=== PATIENT | male | born 1940 | race Caucasian/White ===

== ENCOUNTER → 2018-09-23 06:46 | Outpatient (CLI) | payer MEDICARE, OTHER, SELFPAY ==
--- NOTE | 2018-09-23 07:00 | RAD_ITS ---
STUDY: X-RAY - ORBITS REASON FOR EXAM: Male, 77 years old. This study is being performed as a clearance examination for exclusion of orbital metal, prior to the performance of an MRI examination. TECHNIQUE: 2 view(s) of the orbits were obtained. COMPARISON: Prior comparison studies are not available for review at this time. FINDINGS: Normal bilateral orbits without a metallic orbital foreign body. Normal visualized facial bones. Normal paranasal sinuses. The soft tissue structures are unremarkable. RAD/Orbits for Foreign Body IMPRESSION: No demonstrated metallic orbital foreign body. Electronically Signed: Yeny Vyas MD at 7:34 EST , Service support ,
--- NOTE | 2018-09-23 07:01 | MRI_ITS ---
STUDY: MRI BRAIN WITH AND WITHOUT CONTRAST (ATTENTION INTERNAL AUDITORY CANALS - I.A.C.'s) REASON FOR EXAM: Male, 77 years old. rt hearing loss TECHNIQUE: Standardized multiplanar fat and water weighted pulse sequences were obtained. 9 ml of Gadavist contrast material was administered intravenously for the contrast portion of the examination. COMPARISON: None. FINDINGS: Normal bilateral temporal bones. Normal bilateral internal auditory canals. There is no demonstrated intracanalicular or cisternal vestibular schwannoma (acoustic neuroma). There is no enhancement of the bilateral VIIth or VIIIth cranial nerves. Normal bilateral cochlea, vestibules and semicircular canals. Normal size of the ventricles and extra-axial spaces for the patient's age. There are a limited number of small white matter hyperintensities, distributed throughout the deep white matter tracts of the cerebral hemispheres, consistent with mild chronic white matter ischemic changes. There is no evidence for recent intracranial ischemia or other cause of cytotoxic edema on diffusion weighted imaging (DWI). Normal bilateral basal ganglia. Normal thalami. Normal flow voids within the major intracranial circulation suggesting patency by spin echo criteria. Normal venous enhancement. There is no enhancing intra-axial or extra-axial abnormality. There is no extra-axial fluid accumulation. Normal sella turcica, pituitary gland, infundibular stalk, optic chiasm and hypothalamus. Normal tectal plate and pineal gland. Normal midbrain, jenny and medulla. Normal cerebellum. Normal basal cisterns. No demonstrated orbital abnormality, within the constraints of a routine brain study. Normal visualized paranasal sinuses. Normal calvarium and skull base. Normal visualized soft tissue structures. Normal visualized upper cervical spine. MRI/Brain W/WO Contrast IMPRESSION: Normal unenhanced and enhanced MRI of the bilateral internal auditory canals (I.A.C's). Mild chronic involutional changes of the brain. Electronically Signed: Jill Castanon MD at 15:55 EST , Service support ,
[2018-09-23 11:46] LABS: CREATININE FINGERSTICK 0.9 mg/dL (0.70-1.30); EGFR FINGERSTICK > 60.0000 mL/min (>60)
--- OUTSIDE RECORDS SUMMARY | 2018-12-25 11:24 | XMS RPT_ITS ---
:1940 Author Organization OHIP Support Name Relationship Address Phone COLBYASHLEE Unavailable [address] + [place] [address] QUENTIN BOWMAN Unavailable Unavailable Unavailable ZACH FLANAGAN Unavailable Unavailable + NOT GIVEN Unavailable Unavailable Unavailable [place], [address] COLBYLAURAON Unavailable [address] + [place] [address] ASHLEE BOWMAN Unavailable [address] [place] [address] NOT GIVEN Unavailable Unavailable Unavailable [place], [address] COLBY ASHLEE Unavailable [address] + [place] [address] ASHLEE BOWMAN Unavailable [address] Un[facility] [place] [address] R Unavailable Unavailable Unavailable COLBY ASHLEE,L Unavailable [address] + [place] [address] ZACH FLANAGAN Unavailable Unavailable + [place] [address] NOT GIVEN Unavailable Unavailable Unavailable [place], [address] COLBY ASHLEE Unavailable [address] + [place] [address] ASHLEE BOWMAN Unavailable [address] Unavailable [facility] [place] [address] NOT GIVEN Unavailable Unavailable Unavailable [place], [address] ASHLEE BOWMAN Unavailable [address] + [facility] [place] [address] ASHLEE BOWMAN Unavailable [address] Unavailable [facility] [place] [address] ASHLEE BOWMAN Unavailable [address] + [place] [address] QUENTIN BOWMAN Unavailable Unavailable Unavailable FLANAGANPOP HewittE Unavailable Unavailable + NOT GIVEN Unavailable Unavailable Unavailable [place], [address] ASHLEE BOWMAN Unavailable [address] + [place] [address] ASHLEE BOWMAN Unavailable [address] [place] [address] NOT GIVEN Unavailable Unavailable Unavailable [place], [address] ASHLEE BOWMAN Unavailable [address] + [place] [address] ASHLEE BOWMAN Unavailable [address] [place] [address] NOT GIVEN Unavailable Unavailable Unavailable [place], [address] ASHLEE BOWMAN Unavailable [address] + [place] [address] ASHLEE BOWMAN Unavailable [address] [place] [address] NOT GIVEN Unavailable Unavailable Unavailable [place], [address] ASHLEE BOWMAN Unavailable [address] + [place] [address] ASHLEE BOWMAN Unavailable [address] [place] [address] NOT GIVEN Unavailable Unavailable Unavailable [place], [address] ASHLEE BOWMAN Unavailable [address] + [place] [address] ASHLEE BOWMAN Unavailable [address] [place] [address] NOT GIVEN Unavailable Unavailable Unavailable [place], [address] ASHLEE BOWMAN Unavailable [address] + [place] [address] ASHLEE BOWMAN Unavailable [address] [place] [address] ASHLEE BOWMAN Unavailable [address] + [place] [address] COLBYQUENTIN Unavailable Unavailable Unavailable FLANAGANPOP HewittE Unavailable Unavailable + COLBYASHLEE Unavailable [address] + [place] [address] COLBYQUENTIN Unavailable Unavailable Unavailable FLANAGANPOP HewittE Unavailable Unavailable + NOT GIVEN Unavailable Unavailable Unavailable [place], [address] COLBYASHLEE Unavailable [address] + [place] [address] ASHLEE BOWMAN Unavailable [address] Unavailable [place] [address] NOT GIVEN Unavailable Unavailable Unavailable [place], [address] ASHLEE BOWMAN Unavailable [address] + [place] [address] ASHLEE BOWMAN Unavailable [address] [place] [address] ASHLEE BOWMAN Unavailable [address] + [place] [address] QUENTIN BOWMAN Unavailable Unavailable Unavailable FLANAGANPOPE Unavailable Unavailable + ASHLEE BOWMAN Unavailable [address] + [place] [address] QUENTIN BOWMAN Unavailable Unavailable Unavailable FLANAGANPOPE Unavailable Unavailable + ASHLEE BOWMAN Unavailable [address] + [place] [address] QUENTIN BOWMAN Unavailable Unavailable Unavailable FLANAGANPOPE Unavailable Unavailable + NOT GIVEN Unavailable Unavailable Unavailable ASHLEE BOWMAN Unavailable [address] + [place] [address] ASHLEE BOWMAN Unavailable [address] Unavailable [place] [address] NOT GIVEN Unavailable Unavailable Unavailable ASHLEE BOWMAN Unavailable [address] + [place] [address] ASHLEE BOWMAN Unavailable [address] Unavailable [place] [address] ASHELE BOWMAN Unavailable [address] + [place] [address] QUENTIN BOWMAN Unavailable Unavailable Unavailable POP FLANAGANE Unavailable Unavailable + Care Team Providers Name Role Phone Jaspal Piedra Attending Unavailable Jaspal Piedra Referring Unavailable JOSE HUTSON Primary Care Unavailable LUX MEEKS MD Admitting Unavailable LUX MEEKS MD Attending Unavailable LUX MEEKS MD Primary Care Unavailable JOSE HUTSON MD Consulting Unavailable PROVIDER, UNKNOWN Consulting Unavailable PROVIDER, UNKNOWN Consulting Unavailable PROVIDER, UNKNOWN Consulting Unavailable SIVA MORSE Admitting Unavailable SIVA MORSE Attending Unavailable SIVA MORSE Primary Care Unavailable JOSE HUTSON MD Admitting Unavailable JOSE HUTSON MD Attending Unavailable JOSE HUTSON MD Primary Care Unavailable JOSE HUTSON MD Consulting Unavailable PROVIDER, UNKNOWN Consulting Unavailable PROVIDER, UNKNOWN Consulting Unavailable PROVIDER, UNKNOWN Consulting Unavailable JOSE HUTSON MD Admitting Unavailable JOSE HUTSON MD Attending Unavailable JOSE HUTSON MD Primary Care Unavailable JOSE HUTSON MD Consulting Unavailable PROVIDER, UNKNOWN Consulting Unavailable PROVIDER, UNKNOWN Consulting Unavailable PROVIDER, UNKNOWN Consulting Unavailable LUX MEEKS MD Admitting Unavailable LUX MEEKS MD Attending Unavailable LUX MEEKS MD Primary Care Unavailable JOSE HUTSON MD Consulting Unavailable PROVIDER, UNKNOWN Consulting Unavailable PROVIDER, UNKNOWN Consulting Unavailable PROVIDER, UNKNOWN Consulting Unavailable MANNIE FARRELL DR Admitting Unavailable MANNIE FARRELL DR Attending Unavailable MANNIE FARRELL DR Primary Care Unavailable JOSE HUTSON MD Consulting Unavailable PROVIDER, UNKNOWN Consulting Unavailable PROVIDER, UNKNOWN Consulting Unavailable PROVIDER, UNKNOWN Consulting Unavailable MANNIE FARRELL DR Admitting Unavailable MANNIE FARRELL DR Attending Unavailable MANNIE FARRELL DR Primary Care Unavailable JOSE HUTSON MD Consulting Unavailable PROVIDER, UNKNOWN Consulting Unavailable PROVIDER, UNKNOWN Consulting Unavailable PROVIDER, UNKNOWN Consulting Unavailable PHOEBE WOODS STAFF MECHANICAL ENGINEER Admitting Unavailable PHOEBE WOODS STAFF MECHANICAL ENGINEER Attending Unavailable PHOEBE WOODS STAFF MECHANICAL ENGINEER Primary Care Unavailable JOSE HUTSON MD Consulting Unavailable PROVIDER, UNKNOWN Consulting Unavailable PROVIDER, UNKNOWN Consulting Unavailable PROVIDER, UNKNOWN Consulting Unavailable WIETECA SIVA G Admitting Unavailable WIROB, SIVA G Attending Unavailable MINI, SIVA G Primary Care Unavailable JOSE HUTSON MD Consulting Unavailable PROVIDER, UNKNOWN Consulting Unavailable PROVIDER, UNKNOWN Consulting Unavailable PROVIDER, UNKNOWN Consulting Unavailable JOSE HUTSON MD Admitting Unavailable JOSE HUTSON MD Attending Unavailable JOSE HUTSON MD Primary Care Unavailable JOSE HUTSON MD Consulting Unavailable PROVIDER, UNKNOWN Consulting Unavailable PROVIDER, UNKNOWN Consulting Unavailable PROVIDER, UNKNOWN Consulting Unavailable LUX MEEKS MD Admitting Unavailable LUX MEEKS MD Attending Unavailable LUX MEEKS MD Primary Care Unavailable JOSE HUTSON MD Consulting Unavailable PROVIDER, UNKNOWN Consulting Unavailable PROVIDER, UNKNOWN Consulting Unavailable PROVIDER, UNKNOWN Consulting Unavailable [facility] Admitting Unavailable [facility] Attending [facility] Unavailable JOSE HUTSON MD Consulting Unavailable PROVIDER, UNKNOWN Consulting Unavailable PROVIDER, UNKNOWN Consulting Unavailable PROVIDER, UNKNOWN Consulting Unavailable LUX MEEKS MD Admitting Unavailable LUX MEEKS MD Attending Unavailable LUX MEEKS MD Primary Care Unavailable LATOUF, JOSE GARCIA Consulting Unavailable PROVIDER, UNKNOWN Consulting Unavailable PROVIDER, UNKNOWN Consulting Unavailable PROVIDER, UNKNOWN Consulting Unavailable PHOEBE WOODS CNP Admitting Unavailable PHOEBE WOODS STAFF MECHANICAL ENGINEER Attending Unavailable SLAVENMarcelina, PHOEBE STAFF MECHANICAL ENGINEER Primary Care Unavailable LATOUF, JOSE GARCIA Consulting Unavailable PROVIDER, UNKNOWN Consulting Unavailable PROVIDER, UNKNOWN Consulting Unavailable PROVIDER, UNKNOWN Consulting Unavailable WELLINGTON, KEVIN K Attending Unavailable LATOUF, BUTROS Referring Unavailable LATOUF, BUTROS Primary Care Unavailable WELLINGTON, KEVIN K Attending Unavailable WELLINGTON, KEVIN K Referring Unavailable LATOUF, BUTROS Primary Care Unavailable WELLINGTON, KEVIN K Attending Unavailable LATOUF, BUTROS Referring Unavailable LATOUF, BUTROS Primary Care Unavailable WELLINGTON, KEVIN K Attending Unavailable LATOUF, BUTROS Referring Unavailable LATOUF, BUTROS Primary Care Unavailable WELLINGTON, KEVIN K Attending Unavailable LATOUF, BUTROS Referring Unavailable LATOUF, BUTROS Primary Care Unavailable WELLINGTON, KEVIN K Attending Unavailable LATOUF, BUTROS Referring Unavailable LATOUF, BUTROS Primary Care Unavailable WELLINGTON, KEVIN K Attending Unavailable LATOUF, BUTROS Referring Unavailable LATOUF, BUTROS Primary Care Unavailable WELLINGTON, KEVIN K Attending Unavailable LATOUF, BUTROS Referring Unavailable LATOUF, BUTROS Primary Care Unavailable PROBLEMS PROBLEMS DATE TYPE CONDITION / ATTENDING STATUS SOURCE CODE 07/02/2018 Admitting Follow-up / WELLINGTON KEVIN [facility] diagnosis 145() [facility] Repository 04/02/2018 Admitting Malignant WELLINGTONKEVIN LACEY [facility] 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 / [facility] C61(ICD-10) Center Repository 11/08/2017 Admitting Malignant WELLINGTONKEVIN [facility] 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 (HCC) [facility] / C61(ICD-10) Center Repository PROCEDURES PROCEDURES No Procedure Records FoundRESULTS RESULTS CMP WITH EGFR Collected: 10/17/2018 Status: F Source: ENMANUEL BENITAANGELA 8:35 PM [facility] REPOSITORY TYPE CODE TESTS RESULT OUT OF RANGE REFERENCE UNITS LAB CMP with eGFR(LOINC) CMP with eGFR Result Comment: COMPREHENSIVE METABOLIC PANEL LAB SODIUM(LOINC) 136 - 145 mmol/l SODIUM 139 LAB POTASSIUM(LOINC) 3.5 - 5.1 mmol/L POTASSIUM 3.5 LAB CHLORIDE(LOINC) 98 - 107 mmol/L CHLORIDE 104 LAB CO2(LOINC) 21.0 - mmol/L 31.0 CO2 25.9 LAB GLUCOSE(LOINC) 74 - 106 mg/dl GLUCOSE High 125 LAB BUN(LOINC) 6 - 20 mg/dl BUN 19 LAB CREATININE(LOINC) 0.7 - 1.3 mg/dl CREATININE 0.9 LAB AST/SGOT(LOINC) 13 - 39 U/L AST/SGOT 19 LAB ALK PHOS(LOINC) 38 - 126 U/L ALK PHOS 57 LAB CALCIUM(LOINC) 8.6 - mg/dl 10.2 CALCIUM 9.2 LAB TOTAL 6.4 - 8.3 g/dl PROTEIN(LOINC) TOTAL PROTEIN 7.3 LAB ALBUMIN(LOINC) 3.4 - 4.8 g/dL ALBUMIN 4.4 LAB GLOBULIN(LOINC) 1.5 - 3.8 G/DL GLOBULIN 2.9 LAB A/G RATIO(LOINC) 0.9 - 1.6 A/G RATIO 1.5 LAB TOTAL BILI(LOINC) 0.0 - 1.5 mg/dl TOTAL BILI 0.4 LAB B/C RATIO(LOINC) 0 - 30 ratio B/C RATIO 21 LAB ALT/SGPT(LOINC) 10 - 40 U/L ALT/SGPT 20 LAB ANION GAP(LOINC) 10 - 20 mmol/L ANION GAP 13 LAB AGE(LOINC) years AGE 77 LAB eGFR(LOINC) 60 - 999 ML/MINUTE eGFR 82 LAB eGFR(AA)(LOINC) 60 - 999 ML/MINUTE eGFR(AA) 99 Result Comment: ACCORDING TO THE NATIONAL KIDNEY DISEASE EDUCATION PROGRAM(NKDE), A NORMAL eGFR IS A VALUE GREATER THAN OR EQUAL TO 60 ML/MIN/1.73 SQ METERS. CHRONIC KIDNEY DISEASE: <60mL/MIN/1.73 SQ METERS KIDNEY FAILURE: <15mL/MIN/1.73 SQ METERS THIS TEST SHOULD ONLY BE USED FOR PATIENTS 18 YEARS OF AGE AND OLDER. Performed By: #### [id number] #### [facility],[address] [place] [address] CBC Collected: 10/17/2018 Status: F Source: [place] [address]:[id number] PM [facility] REPOSITORY TYPE CODE TESTS RESULT OUT OF RANGE REFERENCE UNITS LAB CBC(LOINC) CBC Result Comment: CBC-COMPLETE BLOOD COUNT LAB WBC(LOINC) 4.5 - 10.8 x 10EE3/UL WBC 7.9 LAB RBC(LOINC) 4.50 - x 10EE6/UL 6.00 RBC Low 4.39 LAB HEMOGLOBIN(LOINC) 13.0 - g/dl 17.5 HEMOGLOBIN 14.6 LAB HEMATOCRIT(LOINC) 40.0 - % 52.0 HEMATOCRIT 41.9 LAB MCV(LOINC) 81 - 98 fl MCV 95 LAB MCH(LOINC) 27 - 33 pg MCH 33 LAB MCHC(LOINC) 32 - 36 X10 3 MCHC 35 LAB RDW/CV(LOINC) 12.0 - % 15.6 RDW/CV 13.8 LAB PLATELET(LOINC) 150 - 450 x10EE3/UL PLATELET 251 LAB MPV(LOINC) 6.4 - 10.5 fl MPV 8.7 Result Comment: AUTOMATED DIFFERENTIAL LAB NEUT %(LOINC) 46.0 - 76.0 % NEUT % 60.8 LAB LYMPH %(LOINC) 20.0 - 45.0 % LYMPH % 31.6 LAB MONOS %(LOINC) 0.0 - 10.0 % MONOS % 5.1 LAB EO %(LOINC) 0.0 - 7.0 % EO % 1.9 LAB BASO %(LOINC) 0.0 - 2.0 % BASO % 0.6 LAB Lymph #(LOINC) 0.80 - 2.80 x10EE3/U L Lymph # 2.50 LAB Neut #(LOINC) 1.50 - 7.10 x10EE3/U L Neut # 4.80 LAB [place] #(LOINC) 0.20 - 1.00 x10EE3/U L [place] # 0.40 LAB EO #(LOINC) 0.00 - 0.50 x10EE3/U L EO # 0.10 LAB Baso #(LOINC) 0.00 - 0.10 x10EE3/U L Baso # 0.00 LAB MANUAL DIFF(LOINC) MANUAL DIFF N/A LAB MORPHOLOGY(LOINC ) MORPHOLOGY N/A Result Comment: {CD] Performed By: #### [id number] #### [facility],[address] [place] [address] CMP WITH EGFR Collected: 10/17/2018 Status: F [facility] REPOSITORY TYPE CODE TESTS RESULT OUT OF RANGE REFERENCE UNITS LAB CMP with eGFR(LOINC) CMP with eGFR Result Comment: COMPREHENSIVE METABOLIC PANEL LAB SODIUM(LOINC) 136 - 145 mmol/l SODIUM 139 LAB POTASSIUM(LOINC) 3.5 - 5.1 mmol/L POTASSIUM 3.5 LAB CHLORIDE(LOINC) 98 - 107 mmol/L CHLORIDE 104 LAB CO2(LOINC) 21.0 - mmol/L 31.0 CO2 25.9 LAB GLUCOSE(LOINC) 74 - 106 mg/dl GLUCOSE High 125 LAB BUN(LOINC) 6 - 20 mg/dl BUN 19 LAB CREATININE(LOINC) 0.7 - 1.3 mg/dl CREATININE 0.9 LAB AST/SGOT(LOINC) 13 - 39 U/L AST/SGOT 19 LAB ALK PHOS(LOINC) 38 - 126 U/L ALK PHOS 57 LAB CALCIUM(LOINC) 8.6 - mg/dl 10.2 CALCIUM 9.2 LAB TOTAL 6.4 - 8.3 g/dl PROTEIN(LOINC) TOTAL PROTEIN 7.3 LAB ALBUMIN(LOINC) 3.4 - 4.8 g/dL ALBUMIN 4.4 LAB GLOBULIN(LOINC) 1.5 - 3.8 G/DL GLOBULIN 2.9 LAB A/G RATIO(LOINC) 0.9 - 1.6 A/G RATIO 1.5 LAB TOTAL BILI(LOINC) 0.0 - 1.5 mg/dl TOTAL BILI 0.4 LAB B/C RATIO(LOINC) 0 - 30 ratio B/C RATIO 21 LAB ALT/SGPT(LOINC) 10 - 40 U/L ALT/SGPT 20 LAB ANION GAP(LOINC) 10 - 20 mmol/L ANION GAP 13 LAB AGE(LOINC) years AGE 77 LAB eGFR(LOINC) 60 - 999 ML/MINUTE eGFR >60 LAB eGFR(AA)(LOINC) 60 - 999 ML/MINUTE eGFR(AA) >60 Result Comment: ACCORDING TO THE NATIONAL KIDNEY DISEASE EDUCATION PROGRAM(NKDE), A NORMAL eGFR IS A VALUE GREATER THAN OR EQUAL TO 60 ML/MIN/1.73 SQ METERS. CHRONIC KIDNEY DISEASE: <60mL/MIN/1.73 SQ METERS KIDNEY FAILURE: <15mL/MIN/1.73 SQ METERS THIS TEST SHOULD ONLY BE USED FOR PATIENTS 18 YEARS OF AGE AND OLDER. Performed By: #### [id number] #### [facility],[address] [place] [id number] PSA TOTAL (CANCER/ELEVATED) Collected: Status: F Source: ENMANUEL 10/17/2018 5:55 PM [facility] REPOSITORY TYPE CODE TESTS RESULT OUT OF RANGE REFERENCE UNITS LAB PSA(LOINC) 0.00 - 4.00 ng/ml PSA 0.03 Performed By: #### [id number] #### [facility],[address] [place] [address] TESTOSTERONE [CCL] Collected: 10/17/2018 Status: F [facility] REPOSITORY TYPE CODE TESTS RESULT OUT OF REFERENCE UNITS RANGE LAB TESTOSTERONE [CCL](LOINC) TESTOSTERONE [CCL] Result Comment: _TESTOSTERONE [CCL]_ TESTOSTERONE [CCL] Reported: 10/19/2018 12:20 Status=F TEST RESULT FLAG RANGE UNITS Testosterone 12 L 193-824 ng/dL 10/19/[id number] A testosterone level in the 193-320 ng/dL range with associated clinical symptoms is considered low and may indicate hypogonadism (from [facility] 2010 [id number]:[id number]). Results >320 ng/dL are considered normal. [facility] [employer] [address] [place] [address] Italia Finn M.D. [id number] Performed By: #### [id number] #### [facility],[address] [place] [address] TESTOSTERONE Collected: 10/17/2018 Status: F Source: [place] 5:55 PM [facility] REPOSITORY TYPE CODE TESTS RESULT OUT OF REFERENCE UNITS RANGE LAB TESTO(LOIN 193-824 ng/dL C) Low Testosterone 12 Performed By: #### TESTO #### [facility] Laboratories Routine Lab [address] [place] [address] CREATININE FINGERSTICK Collected: 09/23/2018 Status: F Source: [place] 7:27 AM [facility] REPOSITORY TYPE CODE TESTS RESULT OUT OF RANGE REFERENCE UNITS LAB L9100.0210 0.70-1.30 mg/dL Normal CREATININE WB 0.9 LAB L9100.0220 >60 mL/min EGFR WB Normal > 60.0000 Performed By: #### L9100.0200 #### [facility] Laboratory Point of Care [address] [place] [address] BRAIN W/WO CONTRAST Observed: 09/23/2018 Status: F Source: [place] 7:02 AM [facility] REPOSITORY [facility] Imaging Services [address] [place] [address] Brain W/WO Contrast MR#: [id number] Acct: [id number] Name: QUENTIN BOWMAN Rep #: [id number] : 1940 M 77 From: Jill Castanon MD PCP: Jose Hutson Status: REG CLI Study: Brain W/WO Contrast Date of Exam: 09/23/18 Exam# [id number] Ordering Dr: Jaspal Piedar MD STUDY: MRI BRAIN WITH AND WITHOUT CONTRAST (ATTENTION INTERNAL AUDITORY CANALS - I.A.C.'s) REASON FOR EXAM: Male, 77 years old. rt hearing loss TECHNIQUE: Standardized multiplanar fat and water weighted pulse sequences were obtained. 9 ml of Gadavist contrast material was administered intravenously for the contrast portion of the examination. COMPARISON: None. FINDINGS: Normal bilateral temporal bones. Normal bilateral internal auditory canals. There is no demonstrated intracanalicular or cisternal vestibular schwannoma (acoustic neuroma). There is no enhancement of the bilateral VIIth or VIIIth cranial nerves. Normal bilateral cochlea, vestibules and semicircular canals. Normal size of the ventricles and extra-axial spaces for the patient's age. There are a limited number of small white matter hyperintensities, distributed throughout the deep white matter tracts of the cerebral hemispheres, consistent with mild chronic white matter ischemic changes. There is no evidence for recent intracranial ischemia or other cause of cytotoxic edema on diffusion weighted imaging (DWI). Normal bilateral basal ganglia. Normal thalami. Normal flow voids within the major intracranial circulation suggesting patency by spin echo criteria. Normal venous enhancement. There is no enhancing intra-axial or extra-axial abnormality. There is no extra-axial fluid accumulation. Normal sella turcica, pituitary gland, infundibular stalk, optic chiasm and hypothalamus. Normal tectal plate and pineal gland. Normal midbrain, jenny and medulla. Normal cerebellum. Normal basal cisterns. No demonstrated orbital abnormality, within the constraints of a routine brain study. Normal visualized paranasal sinuses. Normal calvarium and skull base. Normal visualized soft tissue structures. Normal visualized upper cervical spine. MRI/Brain W/WO Contrast IMPRESSION: Normal unenhanced and enhanced MRI of the bilateral internal auditory canals (I.A.C's). Mild chronic involutional changes of the brain. Electronically Signed: Jill Castanon MD at 15:55 EST , Service support , CC: Jose Hutson; Hemal Piedra MD Tube Former Operator: Signed ORBITS FOR FOREIGN Observed: 09/22/2018 Status: F Source: [place] 1:38 PM [facility] REPOSITORY [facility] Imaging Services [address] [place] [address] Orbits for Foreign Body MR#: [id number] Acct: [id number] Name: QUENTIN BOWMAN Rep #: [id number] : 1940 M 77 From: Yeny Farrell MD PCP: Jose Hutson Status: REG CLI Study: Orbits for Foreign Body Date of Exam: 09/23/18 Exam# [id number] Ordering Dr: Jaspal Piedra MD STUDY: X-RAY - ORBITS REASON FOR EXAM: Male, 77 years old. This study is being performed as a clearance examination for exclusion of orbital metal, prior to the performance of an MRI examination. TECHNIQUE: 2 view(s) of the orbits were obtained. COMPARISON: Prior comparison studies are not available for review at this time. FINDINGS: Normal bilateral orbits without a metallic orbital foreign body. Normal visualized facial bones. Normal paranasal sinuses. The soft tissue structures are unremarkable. RAD/Orbits for Foreign Body IMPRESSION: No demonstrated metallic orbital foreign body. Electronically Signed: Yeny Farrell MD at 7:34 EST , Service support , CC: Jose Hutson; Hemal Piedra MD Tube Former Operator: Signed CBC Collected: 07/21/2018 Status: F Source: ENMANUEL [place] 11:30 AM [facility] REPOSITORY TYPE CODE TESTS RESULT OUT OF RANGE REFERENCE UNITS LAB CBC(LOINC) CBC Result Comment: CBC-COMPLETE BLOOD COUNT LAB WBC(LOINC) 4.5 - 10.8 x 10EE3/UL WBC 7.8 LAB RBC(LOINC) 4.50 - x 10EE6/UL 6.00 RBC Low 4.43 LAB HEMOGLOBIN(LOINC) 13.0 - g/dl 17.5 HEMOGLOBIN 14.5 LAB HEMATOCRIT(LOINC) 40.0 - % 52.0 HEMATOCRIT 41.8 LAB MCV(LOINC) 81 - 98 fl MCV 94 LAB MCH(LOINC) 27 - 33 pg MCH 33 LAB MCHC(LOINC) 32 - 36 X10 3 MCHC 35 LAB RDW/CV(LOINC) 12.0 - % 15.6 RDW/CV 14.5 LAB PLATELET(LOINC) 150 - 450 x10EE3/UL PLATELET 237 LAB MPV(LOINC) 6.4 - 10.5 fl MPV 8.8 Result Comment: AUTOMATED DIFFERENTIAL LAB NEUT %(LOINC) 46.0 - 76.0 % NEUT % 59.6 LAB LYMPH %(LOINC) 20.0 - 45.0 % LYMPH % 30.7 LAB MONOS %(LOINC) 0.0 - 10.0 % MONOS % 7.2 LAB EO %(LOINC) 0.0 - 7.0 % EO % 1.8 LAB BASO %(LOINC) 0.0 - 2.0 % BASO % 0.7 LAB Lymph #(LOINC) 0.80 - 2.80 x10EE3/U L Lymph # 2.40 LAB Neut #(LOINC) 1.50 - 7.10 x10EE3/U L Neut # 4.60 LAB [place] #(LOINC) 0.20 - 1.00 x10EE3/U L [place] # 0.60 LAB EO #(LOINC) 0.00 - 0.50 x10EE3/U L EO # 0.10 LAB Baso #(LOINC) 0.00 - 0.10 x10EE3/U L Baso # 0.10 LAB MANUAL DIFF(LOINC) MANUAL DIFF N/A LAB MORPHOLOGY(LOINC ) MORPHOLOGY N/A Result Comment: {CD] Performed By: #### [id number] #### [facility],[address] [place] [address] CMP WITH EGFR Collected: 07/21/2018 Status: F Source: [facility] 11:30 AM [facility] REPOSITORY TYPE CODE TESTS RESULT OUT OF RANGE REFERENCE UNITS LAB CMP with eGFR(LOINC) CMP with eGFR Result Comment: COMPREHENSIVE METABOLIC PANEL LAB SODIUM(LOINC) 136 - 145 mmol/l SODIUM 138 LAB POTASSIUM(LOINC) 3.5 - 5.1 mmol/L POTASSIUM 4.0 LAB CHLORIDE(LOINC) 98 - 107 mmol/L CHLORIDE 107 LAB CO2(LOINC) 21.0 - mmol/L 31.0 CO2 23.8 LAB GLUCOSE(LOINC) 74 - 106 mg/dl GLUCOSE 79 LAB BUN(LOINC) 6 - 20 mg/dl BUN 17 LAB CREATININE(LOINC) 0.7 - 1.3 mg/dl CREATININE 0.8 LAB AST/SGOT(LOINC) 13 - 39 U/L AST/SGOT 21 LAB ALK PHOS(LOINC) 38 - 126 U/L ALK PHOS 45 LAB CALCIUM(LOINC) 8.6 - mg/dl 10.2 CALCIUM 9.5 LAB TOTAL PROTEIN(LOINC) 6.4 - 8.3 g/dl TOTAL PROTEIN 7.1 LAB ALBUMIN(LOINC) 3.4 - 4.8 g/dL ALBUMIN 4.4 LAB GLOBULIN(LOINC) 1.5 - 3.8 G/DL GLOBULIN 2.7 LAB A/G RATIO(LOINC) 0.9 - 1.6 A/G RATIO 1.6 LAB TOTAL BILI(LOINC) 0.0 - 1.5 mg/dl TOTAL BILI 0.6 LAB B/C RATIO(LOINC) 0 - 30 ratio B/C RATIO 21 LAB ALT/SGPT(LOINC) 10 - 40 U/L ALT/SGPT 19 LAB ANION GAP(LOINC) 10 - 20 mmol/L ANION GAP 11 LAB AGE(LOINC) years AGE 77 LAB eGFR(LOINC) 60 - 999 ML/MINUTE eGFR >60 LAB eGFR(AA)(LOINC) 60 - 999 ML/MINUTE eGFR(AA) >60 Result Comment: ACCORDING TO THE NATIONAL KIDNEY DISEASE EDUCATION PROGRAM(NKDE), A NORMAL eGFR IS A VALUE GREATER THAN OR EQUAL TO 60 ML/MIN/1.73 SQ METERS. CHRONIC KIDNEY DISEASE: <60mL/MIN/1.73 SQ METERS KIDNEY FAILURE: <15mL/MIN/1.73 SQ METERS THIS TEST SHOULD ONLY BE USED FOR PATIENTS 18 YEARS OF AGE AND OLDER. Performed By: #### [id number] #### [facility],[address] [place], [place] [address] CBC Collected: 06/18/2018 Status: F Source: [facility] [facility] AM [facility] REPOSITORY TYPE CODE TESTS RESULT OUT OF RANGE REFERENCE UNITS LAB CBC(LOINC) CBC Result Comment: CBC-COMPLETE BLOOD COUNT LAB WBC(LOINC) 4.5 - 10.8 x 10EE3/UL WBC 7.0 LAB RBC(LOINC) 4.50 - x 10EE6/UL 6.00 RBC Low 4.46 LAB HEMOGLOBIN(LOINC) 13.0 - g/dl 17.5 HEMOGLOBIN 14.3 LAB HEMATOCRIT(LOINC) 40.0 - % 52.0 HEMATOCRIT 42.3 LAB MCV(LOINC) 81 - 98 fl MCV 95 LAB MCH(LOINC) 27 - 33 pg MCH 32 LAB MCHC(LOINC) 32 - 36 X10 3 MCHC 34 LAB RDW/CV(LOINC) 12.0 - % 15.6 RDW/CV 13.9 LAB PLATELET(LOINC) 150 - 450 x10EE3/UL PLATELET 212 LAB MPV(LOINC) 6.4 - 10.5 fl MPV 8.4 Result Comment: AUTOMATED DIFFERENTIAL LAB NEUT %(LOINC) 46.0 - 76.0 % NEUT % 56.5 LAB LYMPH %(LOINC) 20.0 - 45.0 % LYMPH % 31.5 LAB MONOS %(LOINC) 0.0 - 10.0 % MONOS % 8.6 LAB EO %(LOINC) 0.0 - 7.0 % EO % 2.9 LAB BASO %(LOINC) 0.0 - 2.0 % BASO % 0.5 LAB Lymph #(LOINC) 0.80 - 2.80 x10EE3/U L Lymph # 2.20 LAB Neut #(LOINC) 1.50 - 7.10 x10EE3/U L Neut # 4.00 LAB [place] #(LOINC) 0.20 - 1.00 x10EE3/U L [place] # 0.60 LAB EO #(LOINC) 0.00 - 0.50 x10EE3/U L EO # 0.20 LAB Baso #(LOINC) 0.00 - 0.10 x10EE3/U L Baso # 0.00 LAB MANUAL DIFF(LOINC) MANUAL DIFF N/A LAB MORPHOLOGY(LOINC ) MORPHOLOGY N/A Result Comment: {CD] Performed By: #### [id number] #### [facility],[address] [place] [address] PSA CANCER SCREENING Collected: 06/18/2018 Status: F Source: [facility] ([id number]) 7:28 AM [facility] REPOSITORY TYPE CODE TESTS RESULT OUT OF RANGE REFERENCE UNITS LAB PSA(LOINC) 0.00 - 4.00 ng/ml PSA <0.01 Performed By: #### [id number] #### [facility],[address] [place] [address] CMP WITH EGFR Collected: 06/18/2018 Status: F Source: [facility] 7:28 AM [facility] REPOSITORY TYPE CODE TESTS RESULT OUT OF RANGE REFERENCE UNITS LAB CMP with eGFR(LOINC) CMP with eGFR Result Comment: COMPREHENSIVE METABOLIC PANEL LAB SODIUM(LOINC) 136 - 145 mmol/l SODIUM 141 LAB POTASSIUM(LOINC) 3.5 - 5.1 mmol/L POTASSIUM 4.0 LAB CHLORIDE(LOINC) 98 - 107 mmol/L CHLORIDE High 108 LAB CO2(LOINC) 21.0 - mmol/L 31.0 CO2 26.1 LAB GLUCOSE(LOINC) 74 - 106 mg/dl GLUCOSE 87 LAB BUN(LOINC) 6 - 20 mg/dl BUN 14 LAB CREATININE(LOINC) 0.7 - 1.3 mg/dl CREATININE 0.9 LAB AST/SGOT(LOINC) 13 - 39 U/L AST/SGOT 17 LAB ALK PHOS(LOINC) 38 - 126 U/L ALK PHOS 46 LAB CALCIUM(LOINC) 8.6 - mg/dl 10.2 CALCIUM 9.3 LAB TOTAL 6.4 - 8.3 g/dl PROTEIN(LOINC) TOTAL PROTEIN 7.0 LAB ALBUMIN(LOINC) 3.4 - 4.8 g/dL ALBUMIN 4.2 LAB GLOBULIN(LOINC) 1.5 - 3.8 G/DL GLOBULIN 2.8 LAB A/G RATIO(LOINC) 0.9 - 1.6 A/G RATIO 1.5 LAB TOTAL BILI(LOINC) 0.0 - 1.5 mg/dl TOTAL BILI 0.5 LAB B/C RATIO(LOINC) 0 - 30 ratio B/C RATIO 16 LAB ALT/SGPT(LOINC) 10 - 40 U/L ALT/SGPT 15 LAB ANION GAP(LOINC) 10 - 20 mmol/L ANION GAP 11 LAB AGE(LOINC) years AGE 77 LAB eGFR(LOINC) 60 - 999 ML/MINUTE eGFR >60 LAB eGFR(AA)(LOINC) 60 - 999 ML/MINUTE eGFR(AA) >60 Result Comment: ACCORDING TO THE NATIONAL KIDNEY DISEASE EDUCATION PROGRAM(NKDE), A NORMAL eGFR IS A VALUE GREATER THAN OR EQUAL TO 60 ML/MIN/1.73 SQ METERS. CHRONIC KIDNEY DISEASE: <60mL/MIN/1.73 SQ METERS KIDNEY FAILURE: <15mL/MIN/1.73 SQ METERS THIS TEST SHOULD ONLY BE USED FOR PATIENTS 18 YEARS OF AGE AND OLDER. Performed By: #### [id number] #### [place] [address] LIPID PROFILE Collected: 06/18/2018 Status: F Source: [facility] 7:28 [facility] REPOSITORY TYPE CODE TESTS RESULT OUT OF REFERENCE UNITS RANGE LAB LIPID PROFILE(LOIN C) LIPID PROFILE Result Comment: LIPID PROFILE LAB TRIGLYCERIDE(LOINC) 0 - 150 mg/dl TRIGLYCERIDE 97 LAB CHOLESTEROL(LOINC) 0 - 200 mg/dl CHOLESTEROL 150 LAB HDL(LOINC) 40 - 60 mg/dl HDL 51 LAB CHOL/HDL(LOINC) 0.0 - 5.0 CHOL/HDL 2.9 LAB LDL(LOINC) 0 - 129 mg/dl LDL 80 Performed By: #### [id number] #### [place] [address] TSH Collected: 06/18/2018 Status: F Source: [facility] 7:28 [facility] REPOSITORY TYPE CODE TESTS RESULT OUT OF RANGE REFERENCE UNITS LAB TSH(LOINC) 0.34 - 5.60 uIU/ml TSH 2.29 Performed By: #### [id number] #### [place] [address] TESTOSTERONE, TOTAL Collected: 06/18/2018 Status: F Source: [facility] 7:[address] [place] [address] REPOSITORY TYPE CODE TESTS RESULT OUT OF RANGE REFERENCE UNITS LAB TESTOSTERON E, TOTAL(LOINC ) TESTOSTERONE , TOTAL Result Comment: _TESTOSTERONE, TOTAL_ TESTOSTERONE, TOTAL, MALES (ADULT), IMMUNOASSAY Reported: 06/20/2018 12:29 Status=F TEST RESULT FLAG RANGE UNITS TESTOSTERONE, TOTAL, 14 L 250-827 ng/dL 06/[id number] .[id number] MALES (ADULT), IMMUNOASSAY In hypogonadal males, Testosterone, Total, LC/MS/MS, is the recommended assay due to the diminished accuracy of immunoassay at levels below 250 ng/dL. This test code LAB must be ith no collected Unknown in(LOINC) must be a collected in red-top tu Result Comment: gel. Test Performed by [email or web address], [facility], [address] [place] [address] Gabriel Del Rosario M.D., Ph.D., Director of Laboratories , [facility] [id number] Performed By: #### [id number] #### [facility],[address] [place] [address] OPERATIVE PROCEDURES Observed: 05/12/2018 Status: F Source: [facility] 2:58 PM [facility] OPERATIVE REPORT NAME ACCOUNT SEX AGE ADMIT DISCHARGE PT MED. RECORD# NUMBER DATE DATE TYPE QUENTIN BOWMAN [id number] M 77 05/07/18 05/07/18 [id number] ROOM: [facility] DATE OF : 1940 DICTATING PHYSICIAN: Mannie Farrell DATE OF SURGERY: 05/07/18 SURGEON: Mannie Farrell M.D. GREENKEEPER: ANESTHESIOLOGIST: ANESTHETIC: Local with MAC. PREOPERATIVE DIAGNOSIS: Left carpal tunnel syndrome, left trigger thumb. POSTOPERATIVE DIAGNOSIS: Left carpal tunnel syndrome, left trigger thumb. OPERATION PERFORMED: Open release left carpal canal and left trigger thumb. COMPLICATIONS: ESTIMATED BLOOD LOSS: INDICATIONS FOR SURGERY: The patient is a 77-year-old man with history of left hand pain, numbness, tingling, consistent with carpal tunnel syndrome. Also left thumb pain and trigger and consistent with a trigger thumb. He wishes to have surgical intervention. FINDINGS: Intraoperative findings showed stenosis over the carpal canal region and stenosis over the flexor tendon at the thumb at the A1 mi, release of those tissues. DESCRIPTION OF OPERATION: The patient was taken to the operating room, transferred to the operating room table. He was given sedation by the C.R.N.A. Appropriate timeout is performed. His left palm and left thumb were prepped with Betadine and alcohol. He underwent local anesthetic with a total of 10 mL of 2% lidocaine plain, anesthetizing both the carpal canal and base of the left thumb. His left upper extremity had a well padded tourniquet applied to the arm. Left upper extremity is prepped, tied, and draped in the usual orthopedic sterile fashion for the procedure. We exsanguinated the limb, applied a tourniquet 25 mmHg. A 3 mm incision was carried over the palm through skin and subcutaneous tissue, bringing this down onto the Page 1 of 2 QUENTIN BOWMAN Operative Report transverse carpal ligament. Bleeding is controlled with the Bovie. We opened the transverse carpal ligament with a combination of knife and scissors, proximally and distally. Ultimately my small finger could be placed proximally and distally without any undue tension on the contents of the carpal canal. Contents of the carpal canal were visualized. No abnormalities were otherwise, noted. At this point, we thoroughly irrigated, bleeding controlled with the Bovie. We repaired the skin edges with 4-0 Nylon. We then made a transverse incision at the base of the thumb, at the flexor crease through skin only with the knife. Careful dissection with scissors pressed down on the A1 mi over the thumb tendons. That was released with knife and scissors. Once this was done, patient could actively and passively move the thumb without triggering. The area was examined. No other pathology was noted. The wound was thoroughly irrigated. Tourniquet was let down, bleeding controlled with the Bovie. The wound was again thoroughly irrigated. Skin edges were reapproximated with a 4-0 Nylon. Sterile bandage was applied. The patient was awoken from anesthetic, transferred back to his own bed in Recovery, in satisfactory condition. Dictated By: Mannie Farrell MD 05/07/18 08:25 JOB #: [id number] Transcribed By: [email or web address] 05/07/18 10:05 Electronically signed by: E-SIGN DR. MANNIE FARRELL M.D. 05/12/18 14:58 Page 2 of 2 QUENTIN BOWMAN Operative Report CBC Collected: 04/30/2018 Status: F Source: [facility] 9:35 AM [facility] REPOSITORY TYPE CODE TESTS RESULT OUT OF RANGE REFERENCE UNITS LAB CBC(LOINC) CBC Result Comment: CBC-COMPLETE BLOOD COUNT LAB WBC(LOINC) 4.5 - 10.8 x 10EE3/UL WBC 7.5 LAB RBC(LOINC) 4.50 - x 10EE6/UL 6.00 RBC Low 4.37 LAB HEMOGLOBIN(LOINC) 13.0 - g/dl 17.5 HEMOGLOBIN 14.3 LAB HEMATOCRIT(LOINC) 40.0 - % 52.0 HEMATOCRIT 42.4 LAB MCV(LOINC) 81 - 98 fl MCV 97 LAB MCH(LOINC) 27 - 33 pg MCH 33 LAB MCHC(LOINC) 32 - 36 X10 3 MCHC 34 LAB RDW/CV(LOINC) 12.0 - % 15.6 RDW/CV 14.3 LAB PLATELET(LOINC) 150 - 450 x10EE3/UL PLATELET 236 LAB MPV(LOINC) 6.4 - 10.5 fl MPV 8.9 Result Comment: AUTOMATED DIFFERENTIAL LAB NEUT %(LOINC) 46.0 - 76.0 % NEUT % 63.4 LAB LYMPH %(LOINC) 20.0 - 45.0 % LYMPH % 26.9 LAB MONOS %(LOINC) 0.0 - 10.0 % MONOS % 7.6 LAB EO %(LOINC) 0.0 - 7.0 % EO % 1.9 LAB BASO %(LOINC) 0.0 - 2.0 % BASO % 0.2 LAB Lymph #(LOINC) 0.80 - 2.80 x10EE3/U L Lymph # 2.00 LAB Neut #(LOINC) 1.50 - 7.10 x10EE3/U L Neut # 4.80 LAB [place] #(LOINC) 0.20 - 1.00 x10EE3/U L [place] # 0.60 LAB EO #(LOINC) 0.00 - 0.50 x10EE3/U L EO # 0.10 LAB Baso #(LOINC) 0.00 - 0.10 x10EE3/U L Baso # 0.00 LAB MANUAL DIFF(LOINC) MANUAL DIFF N/A LAB MORPHOLOGY(LOINC ) MORPHOLOGY N/A Result Comment: {CD] Performed By: #### [id number] #### [facility],[address] [place] [address] BMP WITH EGFR Collected: 04/30/2018 Status: F Source: [facility] 9:35 AM [facility] REPOSITORY TYPE CODE TESTS RESULT OUT OF RANGE REFERENCE UNITS LAB BMP with eGFR(LOINC) BMP with eGFR Result Comment: BASIC METABOLIC PANEL LAB SODIUM(LOINC) 136 - 145 mmol/l SODIUM 141 LAB POTASSIUM(LOINC) 3.5 - 5.1 mmol/L POTASSIUM 3.9 LAB CHLORIDE(LOINC) 98 - 107 mmol/L CHLORIDE 105 LAB CO2(LOINC) 21.0 - mmol/L 31.0 CO2 26.9 LAB GLUCOSE(LOINC) 74 - 106 mg/dl GLUCOSE 103 LAB BUN(LOINC) 6 - 20 mg/dl BUN 15 LAB CREATININE(LOINC) 0.7 - 1.3 mg/dl CREATININE 0.9 LAB CALCIUM(LOINC) 8.6 - mg/dl 10.2 CALCIUM 9.4 LAB ANION GAP(LOINC) 10 - 20 mmol/L ANION GAP 13 LAB AGE(LOINC) years AGE 77 LAB eGFR(LOINC) 60 - 999 ML/MINUTE eGFR >60 LAB eGFR(AA)(LOINC) 60 - 999 ML/MINUTE eGFR(AA) >60 Result Comment: ACCORDING TO THE NATIONAL KIDNEY DISEASE EDUCATION PROGRAM(NKDE), A NORMAL eGFR IS A VALUE GREATER THAN OR EQUAL TO 60 ML/MIN/1.73 SQ METERS. CHRONIC KIDNEY DISEASE: <60mL/MIN/1.73 SQ METERS KIDNEY FAILURE: <15mL/MIN/1.73 SQ METERS THIS TEST SHOULD ONLY BE USED FOR PATIENTS 18 YEARS OF AGE AND OLDER. Performed By: #### [id number] #### [facility],[address] [place] [address] CMP WITH EGFR Collected: 04/22/2018 Status: F Source: [facility] 6:30 PM [facility] REPOSITORY TYPE CODE TESTS RESULT OUT OF RANGE REFERENCE UNITS LAB CMP with eGFR(LOINC) CMP with eGFR Result Comment: COMPREHENSIVE METABOLIC PANEL LAB SODIUM(LOINC) 136 - 145 mmol/l SODIUM 140 LAB POTASSIUM(LOINC) 3.5 - 5.1 mmol/L POTASSIUM 3.5 LAB CHLORIDE(LOINC) 98 - 107 mmol/L CHLORIDE 107 LAB CO2(LOINC) 21.0 - mmol/L 31.0 CO2 23.6 LAB GLUCOSE(LOINC) 74 - 106 mg/dl GLUCOSE High 138 LAB BUN(LOINC) 6 - 20 mg/dl BUN 17 LAB CREATININE(LOINC) 0.7 - 1.3 mg/dl CREATININE 1.1 LAB AST/SGOT(LOINC) 13 - 39 U/L AST/SGOT 20 LAB ALK PHOS(LOINC) 38 - 126 U/L ALK PHOS 44 LAB CALCIUM(LOINC) 8.6 - mg/dl 10.2 CALCIUM 9.2 LAB TOTAL 6.4 - 8.3 g/dl PROTEIN(LOINC) TOTAL PROTEIN 6.7 LAB ALBUMIN(LOINC) 3.4 - 4.8 g/dL ALBUMIN 4.1 LAB GLOBULIN(LOINC) 1.5 - 3.8 G/DL GLOBULIN 2.6 LAB A/G RATIO(LOINC) 0.9 - 1.6 A/G RATIO 1.6 LAB TOTAL BILI(LOINC) 0.0 - 1.5 mg/dl TOTAL BILI 0.6 LAB B/C RATIO(LOINC) 0 - 30 ratio B/C RATIO 15 LAB ALT/SGPT(LOINC) 10 - 40 U/L ALT/SGPT 16 LAB ANION GAP(LOINC) 10 - 20 mmol/L ANION GAP 13 LAB AGE(LOINC) years AGE 77 LAB eGFR(LOINC) 60 - 999 ML/MINUTE eGFR >60 LAB eGFR(AA)(LOINC) 60 - 999 ML/MINUTE eGFR(AA) >60 Result Comment: ACCORDING TO THE NATIONAL KIDNEY DISEASE EDUCATION PROGRAM(NKDE), A NORMAL eGFR IS A VALUE GREATER THAN OR EQUAL TO 60 ML/MIN/1.73 SQ METERS. CHRONIC KIDNEY DISEASE: <60mL/MIN/1.73 SQ METERS KIDNEY FAILURE: <15mL/MIN/1.73 SQ METERS THIS TEST SHOULD ONLY BE USED FOR PATIENTS 18 YEARS OF AGE AND OLDER. Performed By: #### [id number] #### [facility],[address] [place] [address] CBC Collected: 04/22/2018 Status: F [facility] REPOSITORY TYPE CODE TESTS RESULT OUT OF RANGE REFERENCE UNITS LAB CBC(LOINC) CBC Result Comment: CBC-COMPLETE BLOOD COUNT LAB WBC(LOINC) 4.5 - 10.8 x 10EE3/UL WBC High 11.8 LAB RBC(LOINC) 4.50 - x 10EE6/UL 6.00 RBC Low 4.19 LAB HEMOGLOBIN(LOINC 13.0 - g/dl ) 17.5 HEMOGLOBIN 13.8 LAB HEMATOCRIT(LOINC 40.0 - % ) 52.0 HEMATOCRIT 40.0 LAB MCV(LOINC) 81 - 98 fl MCV 96 LAB MCH(LOINC) 27 - 33 pg MCH 33 LAB MCHC(LOINC) 32 - 36 X10 3 MCHC 35 LAB RDW/CV(LOINC) 12.0 - % 15.6 RDW/CV 14.3 LAB PLATELET(LOINC) 150 - 450 x10EE3/UL PLATELET 239 LAB MPV(LOINC) 6.4 - 10.5 fl MPV 9.0 Result Comment: AUTOMATED DIFFERENTIAL LAB NEUT %(LOINC) 46.0 - 76.0 % NEUT % 69.3 LAB LYMPH %(LOINC) 20.0 - 45.0 % LYMPH % 22.0 LAB MONOS %(LOINC) 0.0 - 10.0 % MONOS % 6.8 LAB EO %(LOINC) 0.0 - 7.0 % EO % 1.6 LAB BASO %(LOINC) 0.0 - 2.0 % BASO % 0.3 LAB Lymph #(LOINC) 0.80 - 2.80 x10EE3/U L Lymph # 2.60 LAB Neut #(LOINC) 1.50 - 7.10 x10EE3/U L Neut # High 8.20 LAB [place] #(LOINC) 0.20 - 1.00 x10EE3/U L [place] # 0.80 LAB EO #(LOINC) 0.00 - 0.50 x10EE3/U L EO # 0.20 LAB Baso #(LOINC) 0.00 - 0.10 x10EE3/U L Baso # 0.00 LAB MANUAL DIFF(LOINC) MANUAL DIFF N/A LAB MORPHOLOGY(LOINC ) MORPHOLOGY N/A Result Comment: {CD] Performed By: #### [id number] #### [facility],[address] [place] [address] CBC WITH DIFF TUSHAR Collected: 04/02/2018 Status: F Source: [facility] 7:52 AM [facility] REPOSITORY TYPE CODE TESTS RESULT OUT OF REFERENCE UNITS RANGE LAB WBC 4.23-9.07 K/uL WBC Count 6.91 LAB RBC 4.63-6.08 M/uL RBC Count 4.27 Low LAB HGB 13.7-17.5 g/dL Hemoglobin 13.5 Low LAB HCT 40.1-51.0 % Hematocrit 41.6 LAB MCV 79.0-92.2 fL Mean Cell 97.4 High Volume LAB MCH 25.7-32.2 pg Mean Cell 31.6 Hgb LAB MCHC 32.3-36.5 g/dL Mean Cell 32.5 Hgb Conc LAB RDW 11.6-14.4 % RBC 14.2 Distribution LAB PLT 163-337 K/uL Platelet 229 Count LAB MPV 9.4-12.4 fL Mean 9.9 Platelet Volume LAB NRBC 0.0-0.2 /100 WBC NUCLEATED 0.0 RBC LAB DTYPE Electronic DIFFERENTIAL TYPE Differential LAB IGRE % IMMATURE 0.4 GRANS % LAB SEGS % NEUTROPHIL 60.1 SEGMENTED LAB LYM % LYMPHOCYTE 26.9 % LAB MON % MONOCYTE % 10.0 LAB EOS % EOSINOPHIL 2.2 % LAB BASO % BASOPHIL % 0.4 LAB IGABS <0.04 K/uL IMMATURE <0.04 GRANS ABSOLUTE LAB SBANS 1.78-5.38 K/uL SEGS + 4.15 Bands,Absolute LAB ALYM 1.32-3.57 K/uL Abs Lymph 1.86 LAB AMONO 0.30-0.82 K/uL Abs [place] 0.69 LAB AEOS <0.55 K/uL Abs Eos 0.15 LAB ABASO <0.09 K/uL Abs Baso <0.04 Performed By: #### [id number] #### [facility]ar [facility], [facility] [address] [place] [address] METABOLIC PANEL - CHRI Collected: 04/02/2018 Status: F Source: [facility] 7:52 AM [facility] REPOSITORY TYPE CODE TESTS RESULT OUT OF REFERENCE UNITS RANGE LAB NA 133-143 mmol/L Sodium 143 LAB K 3.5-5.0 mmol/L Potassium 3.6 LAB CL 98-108 mmol/L Chloride 108 LAB BUN 7-22 mg/dL BUN 15 LAB CREA 0.70-1.30 mg/dL Creatinine 0.97 LAB GLUC 70-99 mg/dL Glucose 80 LAB CA 8.6-10.5 mg/dL Calcium 9.2 LAB ALP 32-126 U/L Alkaline Phosphatase 56 LAB AST 14-40 U/L AST 22 LAB TP 6.4-8.3 g/dL Total Protein 6.8 LAB ALB 3.5-5.0 g/dL Albumin 4.1 LAB BILT <1.5 mg/dL Bilirubin Total 0.5 LAB CO2 22-30 mmol/L Carbon Dioxide 27 LAB GAP 7-17 mmol/L Anion Gap 12 LAB ALT 10-52 U/L ALT 18 LAB GFR >60 mL/min/1.7 3sqM Est GFR,non >60 LAB GFRA >60 mL/min/1.7 3sqM Est GFR, >60 LAB OSMC 278-305 mOsm/kg Osmolality (Calc) 297 Performed By: #### ROMELIADFJ #### Tushar [facility] [address] [place], [place] [address] PSA TUMOR MARKER - Collected: 04/02/2018 Status: F Source: [facility] 7:52 AM [facility] REPOSITORY TYPE CODE TESTS RESULT OUT OF RANGE REFERENCE UNITS LAB EPSA <4.00 ng/mL PSA <0.04 (Prostate Sp Ag) Performed By: #### ROMELIADFJ #### Tushar [facility] [address] [place], [place] [address] CMP WITH EGFR Collected: 01/24/2018 Status: F Source: [facility] 3:27 PM [facility] REPOSITORY TYPE CODE TESTS RESULT OUT OF RANGE REFERENCE UNITS LAB CMP with eGFR(LOINC) CMP with eGFR Result Comment: COMPREHENSIVE METABOLIC PANEL LAB SODIUM(LOINC) 136 - 145 mmol/l SODIUM 141 LAB POTASSIUM(LOINC) 3.5 - 5.1 mmol/L POTASSIUM 4.0 LAB CHLORIDE(LOINC) 98 - 107 mmol/L CHLORIDE 107 LAB CO2(LOINC) 21.0 - mmol/L 31.0 CO2 27.2 LAB GLUCOSE(LOINC) 74 - 106 mg/dl GLUCOSE 77 LAB BUN(LOINC) 6 - 20 mg/dl BUN High 21 LAB CREATININE(LOINC) 0.7 - 1.3 mg/dl CREATININE 0.9 LAB AST/SGOT(LOINC) 13 - 39 U/L AST/SGOT 21 LAB ALK PHOS(LOINC) 38 - 126 U/L ALK PHOS 48 LAB CALCIUM(LOINC) 8.6 - mg/dl 10.2 CALCIUM 9.3 LAB TOTAL 6.4 - 8.3 g/dl PROTEIN(LOINC) TOTAL PROTEIN 7.0 LAB ALBUMIN(LOINC) 3.4 - 4.8 g/dL ALBUMIN 4.2 LAB GLOBULIN(LOINC) 1.5 - 3.8 G/DL GLOBULIN 2.8 LAB A/G RATIO(LOINC) 0.9 - 1.6 A/G RATIO 1.5 LAB TOTAL BILI(LOINC) 0.0 - 1.5 mg/dl TOTAL BILI 0.5 LAB B/C RATIO(LOINC) 0 - 30 ratio B/C RATIO 23 LAB ALT/SGPT(LOINC) 10 - 40 U/L ALT/SGPT 17 LAB ANION GAP(LOINC) 10 - 20 mmol/L ANION GAP 11 LAB AGE(LOINC) years AGE 77 LAB eGFR(LOINC) 60 - 999 ML/MINUTE eGFR >60 LAB eGFR(AA)(LOINC) 60 - 999 ML/MINUTE eGFR(AA) >60 Result Comment: ACCORDING TO THE NATIONAL KIDNEY DISEASE EDUCATION PROGRAM(NKDE), A NORMAL eGFR IS A VALUE GREATER THAN OR EQUAL TO 60 ML/MIN/1.73 SQ METERS. CHRONIC KIDNEY DISEASE: <60mL/MIN/1.73 SQ METERS KIDNEY FAILURE: <15mL/MIN/1.73 SQ METERS THIS TEST SHOULD ONLY BE USED FOR PATIENTS 18 YEARS OF AGE AND OLDER. Performed By: #### [id number] #### [facility],[address] [place], [place] [id number] CBC Collected: 01/24/2018 Status: F Source: [facility] 3:27 PM [facility] REPOSITORY TYPE CODE TESTS RESULT OUT OF RANGE REFERENCE UNITS LAB CBC(LOINC) CBC Result Comment: CBC-COMPLETE BLOOD COUNT LAB WBC(LOINC) 4.5 - 10.8 x 10EE3/UL WBC 9.1 LAB RBC(LOINC) 4.50 - x 10EE6/UL 6.00 RBC 4.53 LAB HEMOGLOBIN(LOINC) 13.0 - g/dl 17.5 HEMOGLOBIN 14.5 LAB HEMATOCRIT(LOINC) 40.0 - % 52.0 HEMATOCRIT 42.6 LAB MCV(LOINC) 81 - 98 fl MCV 94 LAB MCH(LOINC) 27 - 33 pg MCH 32 LAB MCHC(LOINC) 32 - 36 X10 3 MCHC 34 LAB RDW/CV(LOINC) 12.0 - % 15.6 RDW/CV 14.6 LAB PLATELET(LOINC) 150 - 450 x10EE3/UL PLATELET 217 LAB MPV(LOINC) 6.4 - 10.5 fl MPV 9.5 Result Comment: AUTOMATED DIFFERENTIAL LAB NEUT %(LOINC) 46.0 - 76.0 % NEUT % 63.6 LAB LYMPH %(LOINC) 20.0 - 45.0 % LYMPH % 29.8 LAB MONOS %(LOINC) 0.0 - 10.0 % MONOS % 4.6 LAB EO %(LOINC) 0.0 - 7.0 % EO % 1.8 LAB BASO %(LOINC) 0.0 - 2.0 % BASO % 0.2 LAB Lymph #(LOINC) 0.80 - 2.80 x10EE3/U L Lymph # 2.70 LAB Neut #(LOINC) 1.50 - 7.10 x10EE3/U L Neut # 5.80 LAB [place] #(LOINC) 0.20 - 1.00 x10EE3/U L [place] # 0.40 LAB EO #(LOINC) 0.00 - 0.50 x10EE3/U L EO # 0.20 LAB Baso #(LOINC) 0.00 - 0.10 x10EE3/U L Baso # 0.00 LAB MANUAL DIFF(LOINC) MANUAL DIFF N/A LAB MORPHOLOGY(LOINC ) MORPHOLOGY N/A Result Comment: {CD] Performed By: #### [id number] #### [facility],[address] [place], [place] [id number] CBC WITH DIFF TUSHAR Collected: 01/01/2018 Status: F Source: [facility] 8:14 AM [facility] REPOSITORY TYPE CODE TESTS RESULT OUT OF REFERENCE UNITS RANGE LAB WBC 4.23-9.07 K/uL WBC Count 7.43 LAB RBC 4.63-6.08 M/uL RBC Count 4.49 Low LAB HGB 13.7-17.5 g/dL Hemoglobin 14.5 LAB HCT 40.1-51.0 % Hematocrit 43.8 LAB MCV 79.0-92.2 fL Mean Cell 97.6 High Volume LAB MCH 25.7-32.2 pg Mean Cell 32.3 High Hgb LAB MCHC 32.3-36.5 g/dL Mean Cell 33.1 Hgb Conc LAB RDW 11.6-14.4 % RBC 14.8 High Distribution LAB PLT 163-337 K/uL Platelet 204 Count LAB MPV 9.4-12.4 fL Mean 10.2 Platelet Volume LAB NRBC 0.0-0.2 /100 WBC NUCLEATED 0.0 RBC LAB DTYPE Electronic DIFFERENTIAL TYPE Differential LAB IGRE % IMMATURE 0.3 GRANS % LAB SEGS % NEUTROPHIL 60.5 SEGMENTED LAB LYM % LYMPHOCYTE 26.8 % LAB MON % MONOCYTE % 10.0 LAB EOS % EOSINOPHIL 2.0 % LAB BASO % BASOPHIL % 0.4 LAB IGABS 0.00-0.03 K/uL IMMATURE 0.02 GRANS ABSOLUTE LAB SBANS 1.78-5.38 K/uL SEGS + 4.50 Bands,Absolute LAB ALYM 1.32-3.57 K/uL Abs Lymph 1.99 LAB AMONO 0.30-0.82 K/uL Abs [place] 0.74 LAB AEOS 0.04-0.54 K/uL Abs Eos 0.15 LAB ABASO 0.01-0.08 K/uL Abs Baso 0.03 Performed By: #### CBCDFJ #### Tushar CCCT, [facility] [address] [place], [place] [address] #### TESTOS #### [facility] [address] [place] [address] [facility] [address] [place], [place] [address] CMPN WITHOUT GLUCOSE Collected: 01/01/2018 Status: F Source: [facility] 8:14 AM [facility] REPOSITORY TYPE CODE TESTS RESULT OUT OF REFERENCE UNITS RANGE LAB NA 133-143 mmol/L Sodium 141 LAB K 3.5-5.0 mmol/L Potassium 4.1 LAB CL 98-108 mmol/L Chloride 107 LAB BUN 7-22 mg/dL BUN 17 LAB CREA 0.70-1.30 mg/dL Creatinine 0.91 LAB CA 8.6-10.5 mg/dL Calcium 9.4 LAB ALP 32-126 U/L Alkaline Phosphatase 58 LAB AST 14-40 U/L AST 26 LAB TP 6.4-8.3 g/dL Total Protein 6.8 LAB ALB 3.5-5.0 g/dL Albumin 4.1 LAB BILT <1.5 mg/dL Bilirubin Total 0.4 LAB CO2 22-30 mmol/L Carbon Dioxide 30 LAB GAP 7-17 mmol/L Anion Gap 8 LAB ALT 10-52 U/L ALT 18 LAB GFR >60 mL/min/1.7 3sqM Est GFR,non >60 LAB GFRA >60 mL/min/1.7 3sqM Est GFR, >60 Performed By: #### ROMELIADFJ #### Tushar [facility] [address] [place] [address] #### TESTOS #### [facility] [address] [place] [address] [address] [place] [address] PSA TUMOR MARKER - Collected: 01/01/2018 Status: F Source: [facility] 8:14 AM [facility] REPOSITORY TYPE CODE TESTS RESULT OUT OF RANGE REFERENCE UNITS LAB EPSA <4.00 ng/mL PSA 0.30 (Prostate Sp Ag) Performed By: #### ROMELIADFJ #### Tushar [facility] [address] [place] [address] #### TESTOS #### [facility] [address] [place] [address] [address] [place] [id number] TESTOSTERONE, SERUM Collected: 01/01/2018 Status: F Source: [facility] 8:14 AM [facility] REPOSITORY TYPE CODE TESTS RESULT OUT OF REFERENCE UNITS RANGE LAB TESTOS 87-814 ng/dL Low 14 Testosterone , serum Performed By: #### CBCDFJ #### Tushar SEPULVEDAT, [facility] [address] [place], [place] [address] #### TESTOS #### [facility] [address] [place] [address] [facility] [address] [place], [place] [address] CMP WITH EGFR Collected: 11/26/2017 Status: F Source: [facility] 7:30 AM [facility] REPOSITORY TYPE CODE TESTS RESULT OUT OF RANGE REFERENCE UNITS LAB CMP with eGFR(LOINC) CMP with eGFR Result Comment: COMPREHENSIVE METABOLIC PANEL LAB SODIUM(LOINC) 136 - 145 mmol/l SODIUM 140 LAB POTASSIUM(LOINC) 3.5 - 5.1 mmol/L POTASSIUM 4.2 LAB CHLORIDE(LOINC) 98 - 107 mmol/L CHLORIDE 106 LAB CO2(LOINC) 21.0 - mmol/L 31.0 CO2 28.0 LAB GLUCOSE(LOINC) 74 - 106 mg/dl GLUCOSE 77 LAB BUN(LOINC) 6 - 20 mg/dl BUN 14 LAB CREATININE(LOINC) 0.7 - 1.3 mg/dl CREATININE 0.9 LAB AST/SGOT(LOINC) 13 - 39 U/L AST/SGOT 20 LAB ALK PHOS(LOINC) 38 - 126 U/L ALK PHOS 51 LAB CALCIUM(LOINC) 8.6 - mg/dl 10.2 CALCIUM 9.2 LAB TOTAL 6.4 - 8.3 g/dl PROTEIN(LOINC) TOTAL PROTEIN 6.9 LAB ALBUMIN(LOINC) 3.4 - 4.8 g/dL ALBUMIN 4.3 LAB GLOBULIN(LOINC) 1.5 - 3.8 G/DL GLOBULIN 2.6 LAB A/G RATIO(LOINC) 0.9 - 1.6 A/G High RATIO 1.7 LAB TOTAL BILI(LOINC) 0.0 - 1.5 mg/dl TOTAL BILI 0.8 LAB B/C RATIO(LOINC) 0 - 30 ratio B/C RATIO 16 LAB ALT/SGPT(LOINC) 10 - 40 U/L ALT/SGPT 20 LAB ANION GAP(LOINC) 10 - 20 mmol/L ANION GAP 10 LAB AGE(LOINC) years AGE 76 LAB eGFR(LOINC) 60 - 999 ML/MINUTE eGFR >60 LAB eGFR(AA)(LOINC) 60 - 999 ML/MINUTE eGFR(AA) >60 Result Comment: ACCORDING TO THE NATIONAL KIDNEY DISEASE EDUCATION PROGRAM(NKDE), A NORMAL eGFR IS A VALUE GREATER THAN OR EQUAL TO 60 ML/MIN/1.73 SQ METERS. CHRONIC KIDNEY DISEASE: <60mL/MIN/1.73 SQ METERS KIDNEY FAILURE: <15mL/MIN/1.73 SQ METERS THIS TEST SHOULD ONLY BE USED FOR PATIENTS 18 YEARS OF AGE AND OLDER. Performed By: #### [id number] #### [place] [id number] LIPID PROFILE Collected: 11/26/2017 Status: F Source: [facility] 7:30 [facility] RE[facility]ITORY TYPE CODE TESTS RESULT OUT OF REFERENCE UNITS RANGE LAB LIPID PROFILE(LOIN C) LIPID PROFILE Result Comment: LIPID PROFILE LAB TRIGLYCERIDE(LOINC) 0 - 150 mg/dl TRIGLYCERIDE 127 LAB CHOLESTEROL(LOINC) 0 - 200 mg/dl CHOLESTEROL 144 LAB HDL(LOINC) 40 - 60 mg/dl HDL 52 LAB CHOL/HDL(LOINC) 0.0 - 5.0 CHOL/HDL 2.8 LAB LDL(LOINC) 0 - 129 mg/dl LDL 67 Performed By: #### [id number] #### [address] [address] BILIRUBIN DIRECT Collected: 11/26/2017 Status: F Source: [facility] 7:30 [facility] REPOSITORY TYPE CODE TESTS RESULT OUT OF REFERENCE UNITS RANGE LAB DIRECT 0.0 - 0.1 mg/dl BILI(LOINC) High DIRECT 0.2 BILI Performed By: #### [id number] #### [place] [id number] VITAMIN D, 25 Collected: 11/26/2017 Status: F Source: [facility] 7:30 [facility] REPOSITORY TYPE CODE TESTS RESULT OUT OF RANGE REFERENCE UNITS LAB VitD(LOINC) 30.00 - 100 ng/mL VitD 31.81 Result Comment: 25-OHD3 indicates both endogenous production and supplementation. 25-OHD2 is an indicator of exogenous sources, such as diet or supplementation. Therapy is based on measurement of Total 25-OHD, with levels <20 ng/mL indicative of Vitamin D deficiency, while levels between 20 ng/mL and 30 ng/mL suggest insufficiency. Optimal levels are >=30ng/mL. Vitamin D, 25-OH D3 Not Established Vitamin D, 25-OH D2 Not Established Performed By: #### [id number] #### [facility],[address] [place] [address] CBC Collected: 11/13/2017 Status: F Source: [facility] 8:40 AM [facility] REPOSITORY TYPE CODE TESTS RESULT OUT OF RANGE REFERENCE UNITS LAB CBC(LOINC) CBC Result Comment: CBC-COMPLETE BLOOD COUNT LAB WBC(LOINC) 4.5 - 10.8 x 10EE3/UL WBC 7.5 LAB RBC(LOINC) 4.50 - x 10EE6/UL 6.00 RBC 4.71 LAB HEMOGLOBIN(LOINC 13.0 - g/dl ) 17.5 HEMOGLOBIN 14.6 LAB HEMATOCRIT(LOINC 40.0 - % ) 52.0 HEMATOCRIT 44.5 LAB MCV(LOINC) 81 - 98 fl MCV 95 LAB MCH(LOINC) 27 - 33 pg MCH 31 LAB MCHC(LOINC) 32 - 36 X10 3 MCHC 33 LAB RDW/CV(LOINC) 12.0 - % 15.6 RDW/CV High 16.4 LAB PLATELET(LOINC) 150 - 450 x10EE3/UL PLATELET 241 LAB MPV(LOINC) 6.4 - 10.5 fl MPV 8.1 Result Comment: AUTOMATED DIFFERENTIAL LAB NEUT %(LOINC) 46.0 - 76.0 % NEUT % 65.8 LAB LYMPH %(LOINC) 20.0 - 45.0 % LYMPH % 22.8 LAB MONOS %(LOINC) 0.0 - 10.0 % MONOS % 9.4 LAB EO %(LOINC) 0.0 - 7.0 % EO % 1.7 LAB BASO %(LOINC) 0.0 - 2.0 % BASO % 0.3 LAB Lymph #(LOINC) 0.80 - 2.80 x10EE3/U L Lymph # 1.70 LAB Neut #(LOINC) 1.50 - 7.10 x10EE3/U L Neut # 4.90 LAB [place] #(LOINC) 0.20 - 1.00 x10EE3/U L [place] # 0.70 LAB EO #(LOINC) 0.00 - 0.50 x10EE3/U L EO # 0.10 LAB Baso #(LOINC) 0.00 - 0.10 x10EE3/U L Baso # 0.00 LAB MANUAL DIFF(LOINC) MANUAL DIFF N/A LAB MORPHOLOGY(LOINC ) MORPHOLOGY N/A Result Comment: {CD] Performed By: #### [id number] #### [facility],[address] [place] [address] CMP WITH EGFR Collected: 11/13/2017 Status: F Source: [facility] 8:40 AM [facility] REPOSITORY TYPE CODE TESTS RESULT OUT OF RANGE REFERENCE UNITS LAB CMP with eGFR(INC) CMP with eGFR Result Comment: COMPREHENSIVE METABOLIC PANEL LAB SODIUM(LOINC) 136 - 145 mmol/l SODIUM 137 LAB POTASSIUM(LOINC) 3.5 - 5.1 mmol/L POTASSIUM 4.0 LAB CHLORIDE(LOINC) 98 - 107 mmol/L CHLORIDE 104 LAB CO2(LOINC) 21.0 - mmol/L 31.0 CO2 29.0 LAB GLUCOSE(LOINC) 74 - 106 mg/dl GLUCOSE 82 LAB BUN(LOINC) 6 - 20 mg/dl BUN 17 LAB CREATININE(LOINC) 0.7 - 1.3 mg/dl CREATININE 0.9 LAB AST/SGOT(LOINC) 13 - 39 U/L AST/SGOT 17 LAB ALK PHOS(LOINC) 38 - 126 U/L ALK PHOS 48 LAB CALCIUM(LOINC) 8.6 - mg/dl 10.2 CALCIUM 9.1 LAB TOTAL PROTEIN(LOINC) 6.4 - 8.3 g/dl TOTAL PROTEIN 7.0 LAB ALBUMIN(LOINC) 3.4 - 4.8 g/dL ALBUMIN 4.2 LAB GLOBULIN(LOINC) 1.5 - 3.8 G/DL GLOBULIN 2.8 LAB A/G RATIO(LOINC) 0.9 - 1.6 A/G RATIO 1.5 LAB TOTAL BILI(LOINC) 0.0 - 1.5 mg/dl TOTAL BILI 0.6 LAB B/C RATIO(LOINC) 0 - 30 ratio B/C RATIO 19 LAB ALT/SGPT(LOINC) 10 - 40 U/L ALT/SGPT 16 LAB ANION GAP(LOINC) 10 - 20 mmol/L ANION Low GAP 8 LAB AGE(LOINC) years AGE 76 LAB eGFR(LOINC) 60 - 999 ML/MINUTE eGFR >60 LAB eGFR(AA)(LOINC) 60 - 999 ML/MINUTE eGFR(AA) >60 Result Comment: ACCORDING TO THE NATIONAL KIDNEY DISEASE EDUCATION PROGRAM(NKDE), A NORMAL eGFR IS A VALUE GREATER THAN OR EQUAL TO 60 ML/MIN/1.73 SQ METERS. CHRONIC KIDNEY DISEASE: <60mL/MIN/1.73 SQ METERS KIDNEY FAILURE: <15mL/MIN/1.73 SQ METERS THIS TEST SHOULD ONLY BE USED FOR PATIENTS 18 YEARS OF AGE AND OLDER. Performed By: #### [id number] #### [facility],[address] [place] [address] CBC WITH DIFF TUSHAR Collected: 11/08/2017 Status: F Source: [facility] 12:39 PM [facility] REPOSITORY TYPE CODE TESTS RESULT OUT OF REFERENCE UNITS RANGE LAB WBC 4.23-9.07 K/uL WBC Count 7.78 LAB RBC 4.63-6.08 M/uL RBC Count 4.56 Low LAB HGB 13.7-17.5 g/dL Hemoglobin 14.3 LAB HCT 40.1-51.0 % Hematocrit 43.1 LAB MCV 79.0-92.2 fL Mean Cell 94.5 High Volume LAB MCH 25.7-32.2 pg Mean Cell 31.4 Hgb LAB MCHC 32.3-36.5 g/dL Mean Cell 33.2 Hgb Conc LAB RDW 11.6-14.4 % RBC 15.9 High Distribution LAB PLT 163-337 K/uL Platelet 228 Count LAB MPV 9.4-12.4 fL Mean 9.9 Platelet Volume LAB NRBC 0.0-0.2 /100 WBC NUCLEATED 0.0 RBC LAB DTYPE Electronic DIFFERENTIAL TYPE Differential LAB IGRE % IMMATURE 0.4 GRANS % LAB SEGS % NEUTROPHIL 60.8 SEGMENTED LAB LYM % LYMPHOCYTE 28.8 % LAB MON % MONOCYTE % 7.6 LAB EOS % EOSINOPHIL 2.1 % LAB BASO % BASOPHIL % 0.3 LAB IGABS 0.00-0.03 K/uL IMMATURE 0.03 GRANS ABSOLUTE LAB SBANS 1.78-5.38 K/uL SEGS + 4.74 Bands,Absolute LAB ALYM 1.32-3.57 K/uL Abs Lymph 2.24 LAB AMONO 0.30-0.82 K/uL Abs [place] 0.59 LAB AEOS 0.04-0.54 K/uL Abs Eos 0.16 LAB ABASO 0.01-0.08 K/uL Abs Baso 0.02 Performed By: #### CBCDFJ #### Tushar [facility] [address] [place] [address] #### TESTOS #### [facility] [address] [place] [address] [place] [address] CMPN WITHOUT GLUCOSE Collected: 11/08/2017 Status: F Source: [facility] 12:39 PM [facility] REPOSITORY TYPE CODE TESTS RESULT OUT OF REFERENCE UNITS RANGE LAB NA 133-143 mmol/L Sodium 136 LAB K 3.5-5.0 mmol/L Potassium 3.8 LAB CL 98-108 mmol/L Chloride 106 LAB BUN 7-22 mg/dL BUN 14 LAB CREA 0.70-1.30 mg/dL Creatinine 0.78 LAB CA 8.6-10.5 mg/dL Calcium 9.1 LAB ALP 32-126 U/L Alkaline Phosphatase 60 LAB AST 14-40 U/L AST 31 LAB TP 6.4-8.3 g/dL Total Protein 6.9 LAB ALB 3.5-5.0 g/dL Albumin 4.2 LAB BILT <1.5 mg/dL Bilirubin Total 0.7 LAB CO2 22-30 mmol/L Carbon Dioxide 26 LAB GAP 7-17 mmol/L Anion Gap 8 LAB ALT 10-52 U/L ALT 22 LAB GFR >60 mL/min/1.7 3sqM Est GFR,non >60 LAB GFRA >60 mL/min/1.7 3sqM Est GFR, >60 Performed By: #### CBCDFJ #### Tushar [facility], [facility] [address] [place] [address] #### TESTOS #### [facility] [address] [place] [address] [place] [address] PSA TUMOR MARKER - Collected: 11/08/2017 Status: F Source: [facility] 12:39 PM [facility] REPOSITORY TYPE CODE TESTS RESULT OUT OF RANGE REFERENCE UNITS LAB EPSA <4.00 ng/mL High PSA 72.70 (Prostate Sp Ag) Result Comment: DILUTED Performed By: #### CBCDFJ #### Tushar [facility], [facility] [address] [place] [address] #### TESTOS #### U [facility] [address] [place] [id number] [place] [address] [address] [place] [address] TESTOSTERONE, SERUM Collected: 11/08/2017 Status: F Source: [facility] 12:39 PM [facility] REPOSITORY TYPE CODE TESTS RESULT OUT OF REFERENCE UNITS RANGE LAB TESTOS 87-814 ng/dL 214 Testosterone , serum Performed By: #### CBCDFJ #### Tushar [facility], [facility] [address] [place] [address] #### TESTOS #### [facility] [address] [place] [id number] [place] [address] [address] [place] [address] ALLERGIES ALLERGIES DATE TYPE / CODE NAME / CODE REACTION SEVERITY SOURCE Drug PROMETHAZINE/0 VOMITING Moderate Enmanuel Pomerene Allergy/131949631(S 3828546(RXNORM (Severity [facility]) ) Modifier) Hospital (Qualifier Repository Value) Drug NIACIN/2916765 FLUSHING Moderate Enmanuel Pomerene Allergy/475987552(S 9(RXNORM) (Severity [facility]) Modifier) Hospital (Qualifier Repository Value) Environmental ADHESIVE RASH Moderate Enmanuel Pomerene Allergy/381941440(S (Severity [facility]) Modifier) Hospital (Qualifier Repository Value) Drug OXYCONTIN/0000 NAUSEA Moderate Enmanuel Pomerene Allergy/572243497(S 9943(RXNORM) (Severity [facility]) Modifier) Hospital (Qualifier Repository Value) Drug PERCOCET/40184 NAUSEA Moderate Enmanuel Pomerene Allergy/819035567(S 148(RXNORM) (Severity [facility]) Modifier) Hospital (Qualifier Repository Value) ENCOUNTERS ENCOUNTERS ADMIT/DISCHARGE ACCOUNT NUMBER ADMITTING ENCOUNTER LOCATION SOURCE CLASS 10/29/2018 [id number] Ambulatory Building:BS1 [facility] Repository 10/17/2018/10/17/19 [id number] CHUCK, Ambulatory Enmanuel Pomerene 19 [facility] Repository 10/17/2018/10/17/19 [id number] JEANNA, Ambulatory Enmanuel Pomerene 19 [facility] Repository 09/23/2018 [id number] Ambulatory [facility] ding:MRI Repository 08/07/2018/08/07/20 [id number] ENMANUEL, Ambulatory Enmanuel Pomerene 18 [facility] Repository 07/21/2018/07/21/20 [id number] JEANNA, Ambulatory Enmanuel Pomerene 18 [facility] Repository 07/02/2018 [id number] Ambulatory Building:BS1 [facility] Repository 06/27/2018/06/27/20 [id number] KEZIAF, Ambulatory Enmanuel Pomerene 18 [facility] Repository 06/18/2018/06/18/20 [id number] MINI, Ambulatory Enmanuel Pomerene 18 [facility] Repository 06/18/2018/06/18/20 [id number] CHUCK, Ambulatory Enmanuel Pomerene 18 [facility] Repository 05/07/2018/05/07/20 [id number] JAMI, Ambulatory Buildin Enmanuel Pomerene 18 MANNIE BROWN Room: [address] Repository 04/30/2018/04/30/20 [id number] JAMI, Ambulatory Enmanuel Pomerene 18 [facility] Repository 04/22/2018/04/22/20 [id number] JEANNA, Ambulatory Enmanuel Pomerene 18 [facility] Repository 04/02/2018 [id number] Ambulatory Building:BS1 [facility] Repository 04/02/2018 [id number] Ambulatory Building:BS1 [facility] Repository 01/24/2018/01/25/20 [id number] KEZIAF, Ambulatory Enmanuel Pomerene 18 [facility] Repository 01/06/2018/01/07/20 [id number] CHERIEOUF, Ambulatory Enmanuel Pomerene 18 [facility] Repository 01/01/2018 [id number] Ambulatory Building:BS1 [facility] Repository 01/01/2018 [id number] Ambulatory Building:BS1 [facility] Repository 12/06/2017 [id number] Ambulatory Building:BS1 [facility] Repository 11/26/2017/11/26/19 [id number] MINI, Ambulatory Enmanuel Pomerene 18 S[facility] Repository 11/13/2017/11/13/19 [id number] JEANNA, Ambulatory Enmanuel Pomerene 18 [facility] Repository 11/08/2017 [id number] Ambulatory Building:BS1 [facility] Repository PAYERS PAYERS ENCOUNTER GUARANTOR PAYER SUBSCRIBER SOURCE 10/29/2018 QUENTIN RENO: Primary QUENTIN RENO: [facility] Insurance:MEDICARE A [id number] [facility] AND [facility] Number: [address], [id number] [address] [place] [address]Oys: Date:8976-78-82Enkm [place] [address]Mfz: Repository Name:CARE () () 10/29/2018 Secondary QUENTIN RENO: [facility] Insurance:KSKJ [id number] [facility] Number: 0 [facility] [id number] [address] [place] [address] Date:Plan Name:[place] [address]Rme: Repository [address] [place] [address] (HS) [address]WP: 10/17/2018 QUENTIN RENO: Primary Insurance:500 QUENTIN RENO: Enmanuel Pomerene MEDICARE [id number] [facility] OUTPATIENTPolic [address], Number: [id number] [address]Hiu: [id number] [place] [id number] Date:Plan Name: () 10/17/2018 Secondary QUENTINNadira BOWMANB: Enmanuel Murray Insurance:CHRISTOAna [id number] [facility] Number[facility] [address] [facility] [id number], Repository Date:Plan Name:[facility] [id number] 10/17/2018 QUENTIN RENO: Primary Insurance:500 QUENTIN CARDENASB: Enmanuel Pomerene [id number] MEDICARE [id number] [facility] OUTPATIENTPolicy [address], Number: [address] [place] [address], Repository [place] [address]Prr: [id number] [place] [id number] Date:Plan Name: () 10/17/2018 Secondary QUENTIN Dueñas COLBYB: Enmanuel Murray Insurance:CHRISTO [id number] [facility] Number: [address] [facility] [id number], Repository Date:Plan Name:[facility] [id number] 09/23/2018 QUENTIN BOWMAN7360 Primary QUENTIN RENO: Betzy TR Insurance:MEDICARE [id number], PART A BPolicy Number: [facility] [address]Whk: [id number] Repository Date:2018-09-15 () 09/23/2018 Secondary QUENTIN RENO: Betzy Insurance:[facility] [id number] Number: [facility] [id number] Repository Date:3053-08-14KEMBWIV E SUPPLEMENT [address] [place] [address] [id number]: 09/23/2018 Tertiary NOT GIVENUNK Betzy Insurance:SELF PAY [facility] Number: Effective Repository Date:2018-09-15 07/21/2018 QUENTIN RENO: Primary Insurance:500 QUENTIN CARDENASB: Enmanuel Pomerene MEDICARE [id number] [address], Number: 3[facility] [place] [address]Nio: [id number] Date:Plan Name: () 07/21/2018 Secondary QUENTIN RENO: Enmanuel Murray Insurance:[facility] [id number] [facility] Number: 0 [facility] [id number], Repository Date:Plan Name:[facility] [id number] 07/02/2018 QUENTIN RENO: Primary QUENTIN RENO: [facility] Insurance:MEDICARE A [id number] [place] [address] Number: [id number] [address]Yis: Date:2749-93-49Egzt [place] [address]Tqy: Repository Name:[facility] () () 07/02/2018 Secondary QUENTIN RENO: [facility] Insurance:[facility] [id number] [facility] Number: [address] [place] [id number] Date:Plan Name:[facility] [address]Sis: Repository [address] [place] [address] () [address]RB: 06/18/2018 QUENTIN RENO: Primary Insurance:500 QUENTIN RENO: Enmanuel Murray MEDICARE [id number], Number: 3[facility], [place] [address]Bsn: [id number] Date:Plan Name: () 06/18/2018 Secondary QUENTIN CARDENASB: Enmanuel Murray Insurance:[facility] [id number] [facility] Number: [address] Hospital [id number], Repository Date:Plan Name:[facility] [id number] 06/18/2018 QUENTIN CARDENASB: Primary Insurance:500 QUENTIN BOWMANDOB: Enmanuel Wagnererene MEDICARE [id number] [address], Number: [place], [place] [address]Kka: [id number] Date:Plan Name: () 06/18/2018 Secondary QUENTIN BOWMANDOB: Enmanuel Maldonadone Insurance:[facility] [id number] [facility] Number: [address] [facility] [id number], Repository Date:Plan Name:[facility] [id number] 05/07/2018 QUENTIN CARDNEASB: Primary Insurance:500 QUENTIN BOWMANDOB: Enmanuel Wagnererene MEDICARE [id number] [address], Number: 3[place], [place] Repository [place] [address]Ohu: [id number] Date:Plan Name: () 05/07/2018 Secondary QUENTIN BOWMANDOB: Enmanuel Maldonadone Insurance:[facility] [id number] [facility] Number: [address] Hospital [id number], Repository Date: [place] [id number] 04/30/2018 QUENTIN CARDENASB: Primary Insurance:500 QUENTIN R COLBYDOB: Enmanuel Pomerene MEDICARE [id number] [address], Number: 3[place] [address]Zcx: [id number] Date:Plan Name: () 04/30/2018 Secondary QUENTIN BOWMANB: Enmanuel Murray Insurance:[facility] [id number] [facility] Number: 0 [address] [facility] [id number], Repository Date:Plan Name:[facility] [id number] 04/22/2018 QUENTIN RENO: Primary Insurance:500 QUENTIN CARDENASB: Enmanuel Pomerene MEDICARE [id number], Number: [place] [address]Fyw: [id number] Date:Plan Name: () 04/22/2018 Secondary QUENTIN BOWMANB: Enmanuel Murray Insurance:[facility] [id number] [facility] Number: 0 [address] [facility] [id number], Repository Date:Plan Name:[facility] [id number] 04/02/2018 QUENTIN CARDENASB: Primary QUENTIN CARDENASB: [facility] Insurance:MEDICARE A [id number] [facility] BPolicy Number: [address], [id number] [address]Wne: Date:1313-93-18Owlg [place] [address]Kfg: Repository Name:CARE () () 04/02/2018 Secondary QUENTIN BOWMANB: [facility] Insurance:[facility] [id number] [facility] Number: 0 [facility] [id number] Date:Plan Name:[facility] [address]Sau: Repository [address] [place] [address] ) [address]WP: 04/02/2018 QUENTIN RENO: Primary QUENTIN CARDENASB: [facility] Insurance:MEDICARE A [id number] [facility] AND BPolicy Number: [address], [id number] [address]Kge: Date:9397-78-77[place] [address]Hrk: Repository Name:[facility] () () 04/02/2018 Secondary QUENTIN CARDENASB: [facility] Insurance:[facility] [id number] [facility] Number: 0 [facility] [id number] Date:Plan Name:[facility] [address]Nvu: Repository [address] [place] [address] () [address]GF: 01/24/2018 QUENTIN RENO: Primary Insurance:500 QUENTIN CARDENASB: Enmanuel Murray MEDICARE [id number] [place] [address], Number: [address] [place] [address], [facility] [address]Uxm: [id number] [place] [id number] Date:Plan Name: () 01/24/2018 Secondary QUENTIN CARDENASB: Enmanuel Murray Insurance:[facility] [id number] [facility] Number: 0 [address] [facility] [id number], [facility] Date:Plan Name:[facility] [id number] 01/01/2018 QUENTIN RENO: Primary QUENTIN CARDENASB: [facility] Insurance:MEDICARE A [id number] [facility] AND BPolicy Number: [address], [id number] [place] [address]Jtt: Date:4408-05-44Tsev [place] [address]Bcl: Repository Name:CARE () () 01/01/2018 Secondary QUENTIN RENO: [facility] Insurance:[employer] [id number] [facility] Number: 0 [facility] [id number] Date:Plan Name:[place] [address]Bmt: Repository [address]AHVHXBY, [place] () [address]GJ: 01/01/2018 QUENTIN RENO: Primary QUENTIN CARDENASB: [facility] Insurance:MEDICARE A [id number] [facility] AND BPolicy Number: [address], [id number] [place] [address]Kfp: Date:8094-23-69Mpyh [place] [address]Fdm: Repository Name:CARE () () 01/01/2018 Secondary QUENTIN RENO: [facility] Insurance:[employer] [id number] [facility] Number: 0 [facility] [id number] Date:Plan Name:[facility] [address]Ssb: Repository [address]HAQMJCR, [place] () [address]RE: 12/06/2017 QUENTIN RENO: Primary QUENTIN RENO: [facility] Insurance:MEDICARE A [id number] [facility] [address] AND BPolicy Number: [address] [facility] [address], [id number] [place] [address]Liy: Date:3786-89-83[place] [address]Pre: Repository Name:[facility] () () 12/06/2017 Secondary QUENTIN CARDENASB: [facility] Insurance:BANKERS [id number] [facility] Number: 0 [facility] [id number] Date:Plan Name:[facility] [address]Uim: Repository [address]JNMQZVR, [place] () [address]IT: 11/26/2017 QUENTIN RENO: Primary Insurance:500 QUENTIN R RONALDB: Enmanuel Pomerene MEDICARE [id number] [facility] [address], Number: [address], [facility] [address]Vbd: [id number] [id number] Date:Plan Name: () 11/26/2017 Secondary QUENTIN CARDENASB: Enmanuel Wagnererene Insurance:[id number] [facility] Number: 0 TWP [facility] [id number], Repository Date:Plan Name:[facility] [id number] 11/13/2017 QUENTIN RENO: Primary Insurance:500 QUENTINNadira BOWMANDOB: Enmanuel Pomerene MEDICARE [id number] [place] [address], Number: [address] [place] [address] [place] [address]Fdm: [id number] Date:Plan Name: () 11/13/2017 Secondary QUENTIN CARDENASB: Enmanuel Pomerene Insurance:[id number] [facility] Number: 0 TWP [facility] [id number], Repository Date:Plan Name:[facility] [id number] 11/08/2017 QUENTIN RENO: Primary QUENTIN CARDENASB: [facility] [id number] Insurance:MEDICARE A [id number] [facility] [address] AND BPolicy Number: [address], [id number] [address] [place] [id number]: Date:[id number] [address]Xfy: Repository Name:[facility] () () 11/08/2017 Secondary QUENTIN [place]: [facility] Insurance:BANKERS [id number] [place] FIDELITYPolicy Number: 0 [facility] [id number] [address] [place] [address] Date:Plan Name:[place] [id number]: Repository [address], [place] () [id number]:
== END ==
PROVIDERS: Family Provider Internal Medicine; PCP Internal Medicine; Referring Provider Otolaryngology; Visit Provider Otolaryngology
DX: H91.90 Unspecified hearing loss, unspecified ear (principal)
CPT/HCPCS: 70030; 70553; A9585

== ENCOUNTER 2021-12-15 06:52 | Outpatient (CLI) | payer MEDICARE, OTHER, SELFPAY ==
--- NOTE | 2021-12-15 15:15 | STRESSREP_ITS ---
Stress Test Report Pharmacologic myocardial perfusion stress test. 80-year-old man with a history of coronary artery disease. Medications aspirin Plavix lisinopril metoprolol niacin. Stress protocol: Resting EKG demonstrates sinus rhythm with a rate of 65 bpm normal intervals are noted resting blood pressure is 128/78 mmHg. 0.4 mg of regadenoson was infused per usual protocol followed by rapid intravenous saline flush injection continuous EKG monitoring was performed. The maximum heart rate attained was 88 bpm which was 62% of max impact and heart rate the maximum workload was 1 metabolic equivalent. At rest there were no ST or T wave changes noted to suggest abnormal flow reserve and at peak infusion nonspecific ST changes were noted with did not meet the criteria for abnormal flow reserve. The final blood pressure was 128/78 mmHg. Myocardial perfusion protocol. 11.8 mCi of technetium 99m sestamibi was injected at rest. 0.4 mg of regadenos on was infused per usual protocol. At peak infusion 34.3 mCi of technetium 99m sestamibi was injected stress images were obtained stress and rest images were reconstructed and compared in the short axis vertical long and horizontal long axis. Gated images were also obtained Perfusion SPECT analysis: Review of the stress images demonstrate normal uptake of tracer noted in all areas of the myocardium. The resting images similarly demonstrate normal uptake of tracer noted in all areas of the myocardium. No areas of reversibility are noted to suggest ischemia no previous infarct is noted. Gated SPECT analysis: The gated ejection fraction is noted to be 55+ percent. Conclusion: Normal pharmacologic myocardial perfusion stress test. Preserved ejection fraction.
== END 2021-12-15 23:59 | disposition home or self-care (01) ==
LOC: CVS 06:53
PROVIDERS: PCP Internal Medicine; Referring Provider Internal Medicine; Visit Provider Internal Medicine
DX: I25.10 Atherosclerotic heart disease of native coronary artery without angina pectoris (principal); I10 Essential (primary) hypertension
CPT/HCPCS: 78452; 93017; A9500; A4216; J2785

== ENCOUNTER → 2023-02-26 | Outpatient (CLI) | payer MEDICARE, OTHER, SELFPAY ==
--- NOTE | 2023-02-26 14:30 | MRI_ITS ---
HISTORY: Prostate CA with niko mets, RIGHT sciatica TECHNIQUE: Multiplanar and multisequence MR images of the lumbar spine were obtained before and after the intravenous demonstration of 15 mL Clariscan. 196 images. COMPARISON: None. FINDINGS: VERTEBRAE: Vertebral body heights maintained. Multiple T1 hypointense, STIR hyperintense, and enhancing lesions in the visualized lower thoracic spine, lumbar spine, visualized sacrum, and pelvis. Largest lesions in the posterior elements of T11 and vertebral body of L2. No cortical breakthrough or enhancing extraosseous soft tissue mass in the lumbar spine. Mild degenerative endplate changes at multiple levels. ALIGNMENT: No anterior or posterior subluxation. SPINAL CANAL: Normal morphology and position of the conus medullaris at L1. Tortuosity and redundancy of cauda equina nerve root secondary to spinal canal stenosis. No gross epidural collection or enhancing intradural extramedullary mass. INTERVERTEBRAL DISCS: T12-L1: Mild disc bulge with facet arthropathy resulting in minimal narrowing of thecal sac and bilateral foramina based on the sagittal images. L1-2: Moderate disc bulge with facet arthropathy resulting in mild central canal stenosis, moderate left, and severe right foraminal narrowing with probable right L1 nerve root impingement. L2-3: Moderate posterior disc bulge osteophyte complex with facet arthropathy resulting in moderate central canal stenosis and bilateral foraminal narrowing with bilateral L2 nerve root abutment. L3-4: Moderate disc bulge with facet arthropathy superimposed on a developmentally narrow spinal canal resulting in markedly severe central canal stenosis and moderate bilateral foraminal narrowing with probable left L3 nerve root impingement. L4-5: Moderate disc bulge with facet arthropathy and a superimposed left paracentral disc extrusion with superior migration resulting in markedly severe spinal canal stenosis, probable bilateral L5 nerve root impingement, moderate left, and severe right foraminal narrowing. L5-S1: Posterior disc bulge osteophyte complex with facet arthropathy resulting in moderate central canal stenosis and bilateral foraminal narrowing with bilateral L5 nerve root abutment. SOFT TISSUES: Posterior subcutaneous edema. Possible gallstones seen in the gallbladder. 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 Multilevel degenerative disc disease superimposed on a developmentally narrow lumbar spinal canal resulting in markedly severe spinal canal stenosis at L3-4 and L4-5 and moderate bilateral foraminal narrowing with probable nerve root impingement. Cholelithiasis. Electronically Signed: Shy Carey MD at 10:12 EDT ,
--- NOTE | 2023-02-26 15:15 | MRI_ITS ---
STUDY: MR PELVIS WITH T WITHOUT CONTRAST REASON FOR EXAM: Male, 82 years old. Prostate Ca niko mets RIGHT sciatica, rt hip pain TECHNIQUE: Standardized fat and water weighted pulse sequences were obtained in all 3 orthogonal planes, pre-and post contrast administration. 15ml Clariscan contrast material was administered intravenously for the contrast portion of the examination. COMPARISON: xr 3.21.16. FINDINGS: Normal urinary bladder. Normal visualized small intestine. There are multiple colonic diverticula of the sigmoid colon consistent with chronic diverticulosis. There is no pelvic fluid. There is no pelvic mass lesion or lymphadenopathy. Normal visualized pelvic arteries. There are multiple lesions noted in the bones which are likely related to metastatic disease. Lesions are identified in the lower lumbar spine, iliac, sacrum, and the region of the right and left acetabulum. Multiple T2 hyperintense lesions in the femurs. Normal abdominal wall. MRI/Lower Ext Joint Only W/WO Cont IMPRESSION: Diffuse metastatic bone disease. Electronically Signed: Grabiel Taylor MD at 17:33 EDT ,
[2023-02-27 06:51] LABS: CREATININE FINGERSTICK 0.74 mg/dL (0.70-1.30)
[2023-02-27 06:52] LABS: EGFR FINGERSTICK > 60 mL/min (>60)
== END | disposition home or self-care (01) ==
LOC: MRI 13:49
PROVIDERS: PCP Internal Medicine
DX: C61 Malignant neoplasm of prostate (principal); C79.51 Secondary malignant neoplasm of bone; M25.551 Pain in right hip; M54.31 Sciatica, right side
CPT/HCPCS: 72158; 73723; A9575